=== PATIENT | male | born 1955 | race Caucasian/White ===

== ENCOUNTER 2024-09-27 15:49 | Inpatient (IN) | payer MEDICARE ==
[2024-09-27] MEDS ORDERED: NITROGLYCERIN SL TABS 0.4 MG TAB SUBLINGUAL PRN (15:51)
--- NOTE | 2024-09-27 15:57 | ED ---
General Adult HPI - General Stated complaint: Irreg Labs Time Seen by Provider: 09/27/24 15:50 Source: patient, EMS, RN notes reviewed, old records reviewed Mode of arrival: EMS Limitations: no limitations - History of Present Illness Initial comments: 69-year-old male with history of uncontrolled diabetes, hypertension, hyperlipidemia presents to the emergency department for lightheadedness and increased lethargy at home. Patient found to have elevated blood sugars by EMS. He is alert and oriented x 4. Only complaint is lightheadedness. No chest pain. No shortness of breath. Denies any history of CAD or cardiac stents. Presents for further evaluation at this time. - Related Data Home Medications Medication Instructions Recorded Confirmed Losartan [Cozaar] 50 mg PO DAILY 09/27/24 09/27/24 Allergies Allergy/AdvReac Type Severity Reaction Status Date / Time No Known Allergies Allergy Verified 09/27/24 16:48 Review of Systems ROS Statement: Those systems with pertinent positive or pertinent negative responses have been documented in the HPI. Review of Systems: CONST: Denies fever EYES: Denies blurry vision ENT: Denies nasal congestion C/V: Denies Chest pain RESP: Denies shortness of breath GI: Denies abdominal pain : Denies dysuria SKIN: Denies rash. MSK: Denies joint pain. NEURO: Endorses lightheadedness ROS Other: All systems not noted in ROS Statement are negative. Past Medical History Past Medical History: Diabetes Mellitus, Hypertension History of Any Multi-Drug Resistant Organisms: None Reported Past Surgical History: No Surgical Hx Reported Smoking Status: Never smoker Past Alcohol Use History: Unable to Obtain Past Drug Use History: Marijuana General Exam - General Exam Comments Initial Comments: General: Appears in no acute distress. HEAD: Normal with no signs of head trauma. EYES: PERRLA, EOMI, conjunctiva normal, no discharge. Pupils are 3 mm and equal bilaterally. ENT: Hearing grossly intact, normal oropharynx. Dry mucous membranes. RESPIRATORY: Clear breath sounds bilaterally. No wheezes, rales, or rhonchi. C/V: Regular rate and rhythm. S1 and S2 auscultated, no edema, peripheral pulses 2+ and intact throughout ABD: Abd is soft, nontender, nondistended EXT: Normal range of motion, no obvious deformity SKIN: No rashes or lesions observed on exposed skin. NEURO: Alert and orient x 4. No focal deficits. GCS of 15. Limitations: no limitations Course Vital Signs 09/27/24 09/27/24 15:51 16:06 Pulse Rate 66 55 L Respiratory 20 20 Rate Blood Pressure 140/117 123/79 O2 Sat by Pulse 96 99 Oximetry Medical Decision Making - Medical Decision Making Was pt. sent in by a medical professional or institution ([facility], MANAGER LINE, urgent care, hospital, or assisted...) When possible be specific @ -No Did you speak to anyone other than the patient for history (EMS, parent, family, police, friend...)? What history was obtained from this source @ -No Did you review nursing and triage notes (agree or disagree)? Why? @ -I reviewed and agree with nursing and triage notes Were old charts reviewed (outside hosp., previous admission, EMS record, old EKG, old radiological studies, urgent care reports/EKG's, assisted records)? Report findings @ -No old charts for comparison. Differential Diagnosis (chest pain, altered mental status, abdominal pain women, abdominal pain men, vaginal bleeding, weakness, fever, dyspnea, syncope, headache, dizziness, GI bleed, back pain, seizure, CVA, palpatations, mental health, musculoskeletal)? @ -STEMI, DKA, dehydration, electrolyte abnormality, uncontrolled diabetes. This list is not all inclusive. EKG interpreted by me (3pts min.). @ -As above X-rays interpreted by me (1pt min.). @ -Chest x-ray reveals no obvious acute cardiopulmonary process. CT interpreted by me (1pt min.). @ -None done U/S interpreted by me (1pt. min.). @ -None done What testing was considered but not performed or refused? (CT, X-rays, U/S, labs)? Why? @ -None What meds were considered but not given or refused? Why? @ -None Did you discuss the management of the patient with other professionals (professionals i.e. [facility], MANAGER LINE, lab, RT, psych nurse, medical social worker, lawyer probate, teacher, information systems security officer, continuous pillowcase cutter)? Give summary @ -Discussed with on-call cardiology, Dr. Hale who agreed with STEMI criteria and patient be taken to [facility]. I discussed the case with sound physician group on-call Dr. Washington who accepted the admission. Was smoking cessation discussed for >3mins.? @ -No Was critical care preformed (if so, how long)? @ -yes, 20 minutes Were there social determinants of health that impacted care today? How? (Homelessness, low income, unemployed, alcoholism, drug addiction, transportation, low edu. Level, literacy, decrease access to med. care, intermediate, rehab)? @ -No Was there de-escalation of care discussed even if they declined (Discuss DNR or withdrawal of care, Hospice)? DNR status @ -No What co-morbidities impacted this encounter? (DM, HTN, Smoking, COPD, CAD, Cancer, CVA, ARF, Chemo, Hep., AIDS, mental health diagnosis, sleep apnea, morbid obesity)? @ -None Was patient admitted / discharged? Hospital course, mention meds given and route, prescriptions, significant lab abnormalities, going to OR and other pertinent info. @ -Based on the patient's presentation and physical exam, presents emergency department complaining of lightheadedness and apparently some increased fatigue for the last 3 to 4 days at home. Patient is somewhat a poor historian, but was found to have elevated blood sugar in the field. Apparently used to be on insulin. He denies any chest pain but does endorse lightheadedness. EKG obtained and appears to show patient has a STEMI. STEMI pager activated. Patient administered 80 mg of Lipitor, he already saved 324 mg of aspirin by EMS. Patient will be given 4000 units of heparin. Patient's blood sugar is registering as high. We will obtain DKA labs in addition to cardiac labs. Patient will be given 2 L fluid bolus. Chest x-ray shows no obvious acute cardiopulmonary process. Discussed the case with Dr. Hale who was in agreement with STEMI activation. Discussed the case with the admitting provider, Dr. Washington who expressed understanding of STEMI and DKA and was in agreement with plan. He accepted the admission. Patient's laboratory studies returned after he was admitted. Troponin is 36. Blood sugar level is 961. Patient has an MIGUEL with a BUN of 75 and creatinine of 1.47. Acetone positive. Suspect DKA. This was conveyed to the admitting team when I admitted the patient. Undiagnosed new problem with uncertain prognosis? @ -No Drug Therapy requiring intensive monitoring for toxicity (Heparin, Nitro, Insulin, Cardizem)? @ -No Were any procedures done? @ -No Diagnosis/symptom? @ -STEMI, hyperglycemia/DKA Acute, or Chronic, or Acute on Chronic? @ -Acute Uncomplicated (without systemic symptoms) or Complicated (systemic symptoms)? @ -Complicated Side effects of treatment? @ -No Exacerbation, Progression, or Severe Exacerbation? @ -No Poses a threat to life or bodily function? How? (Chest pain, [place], [place], pneumonia, PE, COPD, DKA, ARF, appy, cholecystitis, CVA, Diverticulitis, Homicidal, Suicidal, threat to staff... and all critical care pts) @ -yes - Lab Data Result diagrams: 09/27/24 15:58 09/27/24 15:58 Lab Results 09/27/24 09/27/24 09/27/24 Range/Units 15:58 15:58 15:58 WBC 11.23 H (4.50-10.00) 10*3/uL RBC 6.21 H (4.40-5.60) 10*6/uL Hgb 18.5 H (13.0-17.0) g/dL Hct 55.3 H (39.6-50.0) % MCV 89.0 (80.0-97.0) fL MCH 29.8 (27.0-32.0) pg MCHC 33.5 (32.0-37.0) g/dL Plt Count 216 (140-440) 10*3/uL MPV 12.5 H (9.5-12.2) fL Immature Gran % (Auto) 0.4 % Neutrophils % 84.3 % Lymphocytes % 8.3 % Monocytes % 6.9 % Eosinophils % 0.0 % Basophils % 0.1 % Immature Gran # 0.05 H (0.00-0.04) 10*3/uL Neutrophils # 9.47 H (1.80-7.70) 10*3/uL Lymphocytes # 0.93 (0.90-5.00) 10*3/uL Monocytes # 0.77 (0.20-1.00) 10*3/uL Eosinophils # 0.00 L (0.04-0.35) 10*3/uL Basophils # 0.01 (0.00-0.10) 10*3/uL PT 11.2 (10.0-12.5) sec INR 1.0 (<1.2) APTT 19.2 L (22.0-30.0) sec VBG pH (7.31-7.41) VBG pCO2 (37-51) mmHg VBG HCO3 (24-28) mmol/L Sodium 146 H (137-145) mmol/L Potassium 5.4 H (3.5-5.1) mmol/L Chloride 105 (98-107) mmol/L Carbon Dioxide 22 (22-30) mmol/L Anion Gap 19 mmol/L BUN 75 H (9-20) mg/dL Creatinine 1.47 H (0.66-1.25) mg/dL Est GFR (CKD-EPI)AfAm 56 (>60 ml/min/1.73 sqM) Est GFR (CKD-EPI)NonAf 48 (>60 ml/min/1.73 sqM) Glucose 961 H* (74-99) mg/dL POC Glucose (mg/dL) (70-110) mg/dL POC Glu Cream Maker ID Calcium 9.1 (8.4-10.2) mg/dL Total Bilirubin 1.1 (0.2-1.3) mg/dL AST 57 (17-59) U/L ALT 143 H (4-49) U/L Alkaline Phosphatase 116 (38-126) U/L Troponin I (0.000-0.034) ng/mL Total Protein 7.4 (6.3-8.2) g/dL Albumin 4.2 (3.5-5.0) g/dL Acetone, Qual Positive (Negative) 09/27/24 09/27/24 09/27/24 Range/Units 15:58 15:58 15:58 WBC (4.50-10.00) 10*3/uL RBC (4.40-5.60) 10*6/uL Hgb (13.0-17.0) g/dL Hct (39.6-50.0) % MCV (80.0-97.0) fL MCH (27.0-32.0) pg MCHC (32.0-37.0) g/dL Plt Count (140-440) 10*3/uL MPV (9.5-12.2) fL Immature Gran % (Auto) % Neutrophils % % Lymphocytes % % Monocytes % % Eosinophils % % Basophils % % Immature Gran # (0.00-0.04) 10*3/uL Neutrophils # (1.80-7.70) 10*3/uL Lymphocytes # (0.90-5.00) 10*3/uL Monocytes # (0.20-1.00) 10*3/uL Eosinophils # (0.04-0.35) 10*3/uL Basophils # (0.00-0.10) 10*3/uL PT (10.0-12.5) sec INR (<1.2) APTT (22.0-30.0) sec VBG pH 7.30 L (7.31-7.41) VBG pCO2 47 (37-51) mmHg VBG HCO3 23 L (24-28) mmol/L Sodium (137-145) mmol/L Potassium (3.5-5.1) mmol/L Chloride (98-107) mmol/L Carbon Dioxide (22-30) mmol/L Anion Gap mmol/L BUN (9-20) mg/dL Creatinine (0.66-1.25) mg/dL Est GFR (CKD-EPI)AfAm (>60 ml/min/1.73 sqM) Est GFR (CKD-EPI)NonAf (>60 ml/min/1.73 sqM) Glucose (74-99) mg/dL POC Glucose (mg/dL) >600 H* (70-110) mg/dL POC Glu Cream Maker ID [facility] Calcium (8.4-10.2) mg/dL Total Bilirubin (0.2-1.3) mg/dL AST (17-59) U/L ALT (4-49) U/L Alkaline Phosphatase (38-126) U/L Troponin I 36.600 H* (0.000-0.034) ng/mL Total Protein (6.3-8.2) g/dL Albumin (3.5-5.0) g/dL Acetone, Qual (Negative) - EKG Data -: EKG Interpreted by Me EKG Comments: 12-lead Electrocardiogram Interpretation Note EKG was reviewed and interpreted by myself. 12-lead ECG performed at 1547 is i nterpreted by me as revealing sinus bradycardia with first-degree AV block at a rate of 56 beats per minute. [employer] is normal. LA interval is 315 ms, QRS duration is 180 ms, QTc is [address] segment elevation in his present in leads II, III, aVF. Some reciprocal ST segment depression in aVL. Mild ST segment elevation also in V3.. R wave progression across the precordium was satisfactory. By my interpretation this EKG is non-diagnostic for acute ischemia. Critical Care Time Critical Care Time: Yes Total Critical Care Time: 20 Disposition Clinical Impression: STEMI (ST elevation myocardial infarction), Hyperglycemia, DKA (diabetic ketoacidosis) Disposition: ADMITTED IP TO THIS HOSP Condition: Serious Time of Disposition: 16:15
[2024-09-27 15:59] LABS: Glucose,Whole Blood >600 mg/dL (70-110)
[2024-09-27] MEDS: HEPARIN SODIUM 1,000 UN/ML (10ML VL) IV ONE ×2 (15:59→16:57)
[2024-09-27] MEDS: SODIUM CHLORIDE 0.9% 1,000 ML IV STA (16:00)
[2024-09-27] MEDS: ATORVASTATIN 80 MG TAB PO STA (16:01)
[2024-09-27] MEDS: SODIUM CHLORIDE 0.9% 1,000 ML IV ONE (16:01)
[2024-09-27] MEDS ORDERED: NALOXONE 0.4 MG/ML 1 ML VIAL IV PRN (16:12)
[2024-09-27 16:14] LABS: VBG PH 7.3 (7.31-7.41)
--- NOTE | 2024-09-27 16:21 | XR ---
EXAMINATION TYPE: XR chest 1V portable DATE OF EXAM: 09/27/2024 4:07 PM COMPARISON: None CLINICAL INDICATION: Male, 69 years old with history of chest pain; [facility] TECHNIQUE: XR chest 1V portable Frontal view of the chest. FINDINGS: Lungs/Pleura: There is no evidence of pleural effusion, focal consolidation, or pneumothorax. Pulmonary vascularity: Unremarkable. Heart/mediastinum: Cardiomediastinal silhouette is unremarkable. Musculoskeletal: No acute osseous pathology. IMPRESSION: No acute cardiopulmonary disease/process. [facility], , 09/27/2024 4:19 PM
[2024-09-27 16:23] LABS: ALT 143 U/L (4-49); African American GFR (CKD) 56 (>60 ml/min/1.73 sqM); Albumin 4.2 g/dL (3.5-5.0); Anion Gap 19 mmol/L; Blood Urea Nitrogen 75 mg/dL (9-20); Calcium 9.1 mg/dL (8.4-10.2); Carbon Dioxide 22 mmol/L (22-30); Chloride 105 mmol/L (98-107); Non-African American GFR(CKD) 48 (>60 ml/min/1.73 sqM); Sodium 146 mmol/L (137-145); Total Bilirubin 1.1 mg/dL (0.2-1.3); Total Protein 7.4 g/dL (6.3-8.2)
[2024-09-27] MEDS: IV FLUID CONTINUATION 1,000 ML IV ONE (16:25)
[2024-09-27 16:34] LABS: AST 57 U/L (17-59); Alkaline Phosphatase 116 U/L (38-126); Potassium 5.4 mmol/L (3.5-5.1)
[2024-09-27 16:35] LABS: Glucose 961 mg/dL (74-99)
[2024-09-27] MEDS: LIDOCAINE 1% INJ 10MG/ML (20 ML MDV) SQ ONE (16:37)
[2024-09-27] MEDS: VERAPAMIL SYRINGE (5 MG/10 ML) INTRAARTER ONE (16:41)
[2024-09-27] MEDS ORDERED: DEXTROSE 50% SYRINGE 50 ML IVP PRN (16:42)
[2024-09-27] MEDS ORDERED: INSULIN REGULAR 100 UNIT in SODIUM CHLORIDE 0.9% 100 ML IV SCH (16:45)
[2024-09-27] MEDS: MIDAZOLAM 2 MG/2 ML VIAL IVP ONE (16:47)
[2024-09-27 16:50] LABS: Prothrombin Time 11.2 sec (10.0-12.5)
[2024-09-27 16:52] LABS: Basophils # (A) 0.01 10*3/uL (0.00-0.10); Basophils % (A) 0.1 %; HGB 18.5 g/dL (13.0-17.0); Lymphocytes # (A) 0.93 10*3/uL (0.90-5.00); Lymphocytes % (A) 8.3 %; MCH 29.8 pg (27.0-32.0); MCHC 33.5 g/dL (32.0-37.0); Mean Platelet Volume 12.5 fL (9.5-12.2); Monocytes # (A) 0.77 10*3/uL (0.20-1.00); Monocytes % (A) 6.9 %; Neutrophils # (A) 9.47 10*3/uL (1.80-7.70); Neutrophils % (A) 84.3 %; Partial Thromboplastin Time 19.2 sec (22.0-30.0); Platelet Count 216 10*3/uL (140-440); RBC 6.21 10*6/uL (4.40-5.60); RDW 13.2 % (11.5-14.5); WBC 11.23 10*3/uL (4.50-10.00)
[2024-09-27 16:55] LABS: HCT 55.3 % (39.6-50.0)
[2024-09-27] MEDS: TICAGRELOR 90 MG TAB PO ONE (16:57)
[2024-09-27] MEDS: fentaNYL (PF) 50 MCG/1 ML VIAL IVP ONE (16:59)
[2024-09-27] MEDS: INSULIN REGULAR 100 UNIT/ML VIAL (IV) IV ONE (17:09)
[2024-09-27] MEDS ORDERED: KETAMINE HCL IN 0.9 % NACL 50 MG/5 ML SYRINGE ONE (17:16)
[2024-09-27] MEDS: INSULIN REGULAR 100 UNIT in SODIUM CHLORIDE 0.9% 100 ML IV SCH ×2 (17:20→21:27)
[2024-09-27] MEDS: NOREPINEPHRINE 8 MG in SODIUM CHLORIDE 0.9% 250 ML IV ONE (17:44)
[2024-09-27 17:48] LABS: Glucose,Whole Blood >600 mg/dL (70-110)
[2024-09-27] MEDS: IOPAMIDOL-300 100ML BTL INJ ONE (18:01)
[2024-09-27] MEDS: IOPAMIDOL-370 100ML BTL INJ ONE ×2 (18:01)
[2024-09-27] MEDS: HEPARIN SODIUM,PORCINE 10,000 UNIT in SODIUM CHLORIDE 0.9% 1,000 ML IRRIGATION ONE (18:03)
[2024-09-27] MEDS: HEPARIN SODIUM,PORCINE (1 ML) 2,500 UNIT in SODIUM CHLORIDE 0.9% 250 ML IRRIGATION ONE (18:03)
[2024-09-27 18:29] LABS: Glucose,Whole Blood >600 mg/dL (70-110)
[2024-09-27] MEDS: NOREPINEPHRINE 8 MG in SODIUM CHLORIDE 0.9% 250 ML IV SCH (18:47)
[2024-09-27] MEDS: EMPTY BAG 1 BAG with SODIUM CHLORIDE 0.9% 1,000 ML IV ONE (19:15)
[2024-09-27 19:16] LABS: Glucose,Whole Blood 585 mg/dL (70-110)
[2024-09-27 20:05] LABS: INR 1.1 (<1.2); Partial Thromboplastin Time 74.6 sec (22.0-30.0); Prothrombin Time 11.8 sec (10.0-12.5)
[2024-09-27 20:05] LABS: Glucose,Whole Blood 546 mg/dL (70-110)
[2024-09-27] MEDS ORDERED: Magnesium Replacement Protocol 1 EACH MISC MISCELLANE PRN (20:50)
[2024-09-27] MEDS ORDERED: Potassium Replacement Protocol 1 EACH MISC MISCELLANE PRN (20:50)
[2024-09-27 21:18] LABS: Glucose,Whole Blood 495 mg/dL (70-110)
[2024-09-27] MEDS: SODIUM CHLORIDE 0.9% 1,000 ML IV SCH (21:21)
[2024-09-27 22:09] LABS: Glucose,Whole Blood 436 mg/dL (70-110)
[2024-09-27 23:09] LABS: Glucose,Whole Blood 357 mg/dL (70-110)
[2024-09-27] MEDS ORDERED: ATROPINE SULFATE 0.1 MG/ML 10ML SYRINGE IV PRN (23:17)
[2024-09-27] MEDS ORDERED: RX INFO: IV CONTRAST WAS GIVEN 1 EACH MISC MISCELLANE PRN (23:17)
[2024-09-27] MEDS ORDERED: ZOLPIDEM 5 MG TAB PO PRN (23:17)
[2024-09-27] MEDS ORDERED: MAG HYDROX/AL HYDROX/SIMETH 30 ML CUP PO PRN (23:17)
--- NOTE | 2024-09-27 23:48 | P.PRCINT ---
Percutaneous Coronary Int. - Percutaneous Coronary Intervention Percutaneous Coronary Intervention: PROCEDURES PERFORMED: Bilateral coronary angiography, PCI proximal to mid LAD with overlapping 2.5 x 23mm XIence FINA and 3.0 x 48mm Xience FINA, post dilated with a 3.5mm NC balloon, IVUS LAD INDICATION: Inferior STEMI CONSENT:I have discussed the risks, benefits and alternative therapies for the above-mentioned procedure and for both sedation/analgesia as well as necessary blood product administration, if indicated, as they pertain to this patient. The patient has indicated understanding and acceptance of the risks and procedures discussed. PROCEDURE: After the risks, benefits and alternatives of the above mentioned procedure explained in detail with the patient, informed consent was obtained. Patient was taken to the catheterization lab and prepped and draped in usual fashion. A 6-Andorran sheath had been placed in the right radial artery previously. Patient had ST elevations in inferior leads as well as V3 with unclear culprit vessel with somewhat of dye hangup in RCA however also well collateralized RCA and hazy appearance of LAD. Initial attempts were made at engaging the RCA with a 6FR AL 1 however unsuccessful and eventually able to cannulate with an AL 0.75 guide and wire to the acute bend of the RCA. With the help of a guideliner, able to wire somewhat more of the vessel however not passing freely. Able to advance a 2.5 x 8mm balloon and balloon angioplasty was performed however not significant change in antegrade perfusion, unclear if truly intimal in the natural course or in a side branch and also behaving more like a LOOPER OPERATOR. Patient had been confused since arrival and not answering questions appropriately and not following commands. Anesthesia was called and gave patient Ketamine with some mild improvement in agitation intially. Given RCA behaving like A LOOPER OPERATOR with some left to right collaterals, the decision was made to perform PCI of the LAD and monitor response. A 6FR CLS 4.0 guide catheter was used to engage the left main. A 0.014 BMW wire was not easily adva nced and a 0.014 whisper wire was used to advance into the distal LAD. Balloon angioplasty was performed with a 2.5 x 8mm balloon to the mid LAD. There was diffuse disease as well as severe myocardial bridging of the proximal to mid LAD. At this point patient was restless and pulled his arm, pulling the catheter and the wire out of the left main. The artery was reengaged and rewired. Angiogram showed diffuse disease however more proximal dissection. A 2.5 x 23mm Xience FINA was placed in the mid LAD. A 3.0 x 48mm Xience FINA was placed in the proximal to mid LAD. Angiogram showed poor antegrade flow and therefore post dilated with a 3.0mm NC balloon. There was still poor antegrade flow and IVUS showed well expanded stent with no dissection. This was felt possibly related to myocardial bridging of the mid LAD. The mid and proximal portion of the stent was post dilated with a 3.5mm NC balloon. Final angiograms were performed. Preintervention there was 95% stenosis with AMY 2 flow and post intervention there was < 10% stenosis with AMY 3 flow. Angiogram of the RCA was performed with a 6Fr CLS 4.0 catheter which engaged the artery well. A 0.014 pilot plant technician 200 was able to advance to just past the bend however unable to easily pass further. Patient still not following commands and pulled the wire out again. Patient was hypotensive felt possibly related to sedation as well as cardiogenic shock, possible septic shock however improved with pressors and patient felt poor candidate for Impella given altered mental status. His BP had normalized on pressors and therefore the procedure was stopped. The right radial sheath was removed and a TR band was placed with hemostasis achieved. The patient tolerated the procedure well. Patient was transported back to the post catheterization holding area in stable condition. Conscious Sedation: Patient was monitored under the direct supervision of myself for conscious sedation using Versed and fentanyl for a total duration of 68 minutes HEMODYNAMICS: Ao: 124/71 (further decreased to 78/60) SELECTIVE CORONARY ARTERIOGRAPHY: LEFT MAIN: The left main is a large caliber vessel which bifurcates into the LAD and circumflex. There is no significant stenosis. LEFT ANTERIOR DESCENDING CORONARY ARTERY: LAD is a large caliber vessel which wraps around to the apex. There is diffuse proximal 20-30% then 40% proximal to mid LAD with excessive motion and myocardial bridging. The mid LAD has a hazy 95% stenosis and diffuse 40-50% stenosis of the remained of the distal LAD. There are left to right collaterals. LEFT CIRCUMFLEX CORONARY ARTERY: Left circumflex is a moderate caliber vessel with diffuse 40-50%. RIGHT CORONARY ARTERY: The right coronary artery is a large caliber vessel which gives off a PDA and PLV branch and is the dominant vessel. There is 100% stenosis. FINAL IMPRESSION: 1. CAD as described above including 95% mid LAD, 40-50% distal LAD, 40-50% circumflex, 100% RCA with left to right collaterals 2. S/p PCI proximal to mid LAD with overlapping 2.5 x 23mm XIence FINA and 3.0 x 48mm Xience FINA, post dilated with a 3.5mm NC balloon 3. Shock, improved with vasopressors likely cardiogenic +/- sepsis 4. Patient uncooperative throughout procedure 5. RCA behaving more like a chronic occlusion and felt to be LOOPER OPERATOR PLAN: 1. Aggressive risk factor modification per most recent ACC/AHA guidelines. 2. Continue dual antiaplatelets with aspirin and Brillinta for 12 months
[2024-09-27] MEDS: SODIUM CHLORIDE 0.9% 1,000 ML in EMPTY BAG 1 BAG IV SCH (23:54)
--- NOTE | 2024-09-28 00:06 | CC ---
CARDIAC CATHETERIZATION REPORT INDICATION: Acute inferior wall myocardial infarction. PROCEDURE NOTE: After obtaining informed consent, left heart catheterization and coronary angiogram were performed via the right radial artery using standard Becca catheters. An AR2 5- Setswana catheter was used to engage the right coronary artery. Right radial artery access was obtained using ultrasound guidance by Dr. Iverson. A 6-Setswana sheath was placed. Catheters and wires were floated into the ascending aorta under fluoroscopic guidance. FINDINGS: 1. Hemodynamics: Central aortic pressure is 120/70 mm. 2. Left ventriculogram: Left ventriculogram is not performed. 3. Angiographic data under this left main coronary artery appears calcified, but is free of significant stenosis, divides into left anterior descending coronary artery and circumflex coronary artery. There is a 90% mid LAD stenosis and an 80% stenosis involving the circumflex coronary artery. 4. Right coronary artery is totally occluded proximally. CONCLUSION: Severe three-vessel coronary artery disease as described above with an acutely occluded right coronary artery, which is responsible for the myocardial infarction. The patient has blood sugar more than 900. He is a known diabetic, has not been taking insulin. It is possible he is in diabetic ketoacidosis, appeared somewhat slow to respond to questions and somewhat confused. MMODL / IJN: [id number] /
[2024-09-28 00:09] LABS: Glucose,Whole Blood 309 mg/dL (70-110)
--- NOTE | 2024-09-28 00:09 | CONS ---
CONSULTATION CHIEF COMPLAINT: Acute myocardial infarction. HISTORY OF PRESENT ILLNESS: This is a 69-year-old gentleman with history of insulin-requiring diabetes, that he stopped taking insulin 2 years ago, came to hospital complaining of dizziness and not feeling well, seems somewhat slow to respond to questions, had an EKG that showed acute inferior wall myocardial infarction. STEMI team was alerted and we were called as a result. I saw the patient in the phlebotomist lab assistant. He complains of dizziness and not feeling well for the last several days, but did not have any chest pain or difficulty in breathing. EKG showed acute inferior wall myocardial infarction, and I advised him to undergo emergent cardiac catheterization. Other than the elevated blood sugars, we did not have any of his labs. He has not received any insulin in the ER. We are going to give him 10 units of insulin and maybe start him on insulin drip per protocol. It is very possible that the patient is in diabetic ketoacidosis. We are waiting on labs at this time. PAST MEDICAL HISTORY: Significant for diabetes. MEDICATIONS: He is not taking any. ALLERGIES: None. FAMILY HISTORY: Negative for premature coronary artery disease. SOCIAL HISTORY: He denies any smoking, EtOH abuse or drug abuse. REVIEW OF SYSTEMS: I am not able to obtain from the patient. PHYSICAL EXAMINATION: GENERAL: On exam, he is not in distress. VITAL SIGNS: Heart rate is 65 beats per minute, blood pressure is 110/72, and respiratory rate is 18. CHEST: Reveals good air entry bilaterally. I do not hear any crackles or rhonchi. HEART: Reveals first and second heart sounds. No gallop. No murmur. ABDOMEN: Soft. EXTREMITIES: Exam of extremities did not reveal any edema. LABORATORY DATA: Labs are pending. ASSESSMENT: 1. Acute inferior wall myocardial infarction. 2. Severe uncontrolled diabetes with blood sugars over 600 with possible diabetic ketoacidosis. PLAN: The patient's prognosis is guarded. He will undergo emergent catheterization. MMODL / IJN: [id number] /
[2024-09-28 00:59] LABS: African American GFR (CKD) 80 (>60 ml/min/1.73 sqM); Anion Gap 15 mmol/L; Blood Urea Nitrogen 59 mg/dL (9-20); Carbon Dioxide 22 mmol/L (22-30); Chloride 121 mmol/L (98-107); Glucose 316 mg/dL (74-99); Non-African American GFR(CKD) 69 (>60 ml/min/1.73 sqM); Sodium 158 mmol/L (137-145)
[2024-09-28 01:18] LABS: Glucose,Whole Blood 172 mg/dL (70-110)
[2024-09-28 02:08] LABS: Glucose,Whole Blood 126 mg/dL (70-110)
[2024-09-28] MEDS: D5-0.45% NACL WITH KCL 20MEQ/L 1,000 ML IV SCH (02:27)
[2024-09-28 03:03] LABS: Glucose,Whole Blood 124 mg/dL (70-110)
--- NOTE | 2024-09-28 03:18 | P.HPIM ---
History of Present Illness H&P Date: 09/27/24 69-year-old male with uncontrolled diabetes mellitus coronary artery disease hypertension Patient seems to be tired at this time unable to provide any meaningful history he confirm with his daughter is providing at bedside. She has not spoken to him in couple days he was not answering his phone she goes to his house to check on him and she found him lethargic and unable to take care of himself for which he brought him to the hospital for evaluation upon arrival initial blood work showed diabetic ketoacidosis however EKG showed ST elevation [place] for which she was rushed to the [facility] for evaluation patient did not really specifically reporting chest pain he was hurting all over. At the [facility] left heart cath was performed 95% occlusion of the LAD was stented with successful PCI. Patient also found to have other moderate vessel disease and 100% occlusion of RCA with collaterals Patient denies tobacco smoking or heavy alcohol he admits to marijuana review of systems Pertinent positives as noted in HPI. All other systems were reviewed and are negative on exam Constitutional: No acute distress, cooperative Eyes: Anicteric sclerae, moist conjunctiva, Pupils equal round reactive to light Lungs: Clear to auscultation Clear to percussion Normal respiratory effort, no accessory muscle use Cardiovascular: Heart regular in rate and rhythm, No murmurs, gallops, or rubs No peripheral edema Abdominal: Soft Nontender, no guarding, rebound or rigidity Abdomen moving with respiration Normoactive bowel sounds Extremities: No digital cyanosis No clubbing Pedal pulses intact and symmetrical Radial pulses intact and symmetrical No calf tenderness Psychiatric: Alert and oriented to person, place and time Neuro Muscles Strength 4/5 in all 4 extremities Sensation to light touch grossly present throughout Cranial nerves II-XII grossly intact Past Medical History Past Medical History: Diabetes Mellitus, Hypertension History of Any Multi-Drug Resistant Organisms: None Reported Past Surgical History: No Surgical Hx Reported Smoking Status: Never smoker Past Alcohol Use History: Unable to Obtain Past Drug Use History: Marijuana - Past Family History Brother(s) Family Medical History: Diabetes Mellitus, Myocardial Infarction ([place]) Additional Family Medical History / Comment(s): Brother Cooper - [place] w/ stents Brother Fredi - [place], HTN Mother Family Medical History: Diabetes Mellitus, Myocardial Infarction ([place]) Medications and Allergies Home Medications Medication Instructions Recorded Confirmed Type Losartan [Cozaar] 50 mg PO DAILY 09/27/24 09/27/24 History Allergies Allergy/AdvReac Type Severity Reaction Status Date / Time No Known Allergies Allergy Verified 09/27/24 16:48 Physical Exam Vitals: Vital Signs Pulse Resp BP Pulse Ox 09/27/24 19:00 51 L 24 115/77 100 09/27/24 18:45 50 L 22 100/73 100 09/27/24 18:30 51 L 18 09/27/24 18:27 54 L 18 120/81 96 09/27/24 16:06 55 L 20 123/79 99 09/27/24 15:51 66 20 140/117 96 Intake and Output 09/27/24 09/27/24 09/27/24 06:59 14:59 22:59 Intake Total 981.350 Balance 981.350 Intake: IV 974 Empty Bag 1 bag @ 1 ML/KG 73 /HR 72.575 mls/hr IV . [id number] ONE with Sodium Chloride 0.9% 1,000 ml Rx #:[id number] Intake, IV Titration 7.350 Amount Norepinephrine 8 mg In 7.350 Sodium Chloride 0.9% 250 ml @ 0.03 MCG/KG/MIN 4. 213 mls/hr IV .Q24H [facility] Rx#:[id number] Other: Voiding Method External Catheter Weight 72.575 kg Results CBC & Chem 7: 09/27/24 15:58 09/28/24 00:06 Labs: Abnormal Lab Results - Last 24 Hours (Table) 09/27/24 09/27/24 09/27/24 Range/Units 15:58 15:58 15:58 WBC 11.23 H (4.50-10.00) 10*3/uL RBC 6.21 H (4.40-5.60) 10*6/uL Hgb 18.5 H (13.0-17.0) g/dL Hct 55.3 H (39.6-50.0) % MPV 12.5 H (9.5-12.2) fL Immature Gran # 0.05 H (0.00-0.04) 10*3/uL Neutrophils # 9.47 H (1.80-7.70) 10*3/uL Eosinophils # 0.00 L (0.04-0.35) 10*3/uL APTT 19.2 L (22.0-30.0) sec VBG pH (7.31-7.41) VBG HCO3 (24-28) mmol/L Sodium 146 H (137-145) mmol/L Potassium 5.4 H (3.5-5.1) mmol/L BUN 75 H (9-20) mg/dL Creatinine 1.47 H (0.66-1.25) mg/dL Glucose 961 H* (74-99) mg/dL POC Glucose (mg/dL) (70-110) mg/dL ALT 143 H (4-49) U/L Troponin I (0.000-0.034) ng/mL 09/27/24 09/27/24 09/27/24 Range/Units 15:58 15:58 15:58 WBC (4.50-10.00) 10*3/uL RBC (4.40-5.60) 10*6/uL Hgb (13.0-17.0) g/dL Hct (39.6-50.0) % MPV (9.5-12.2) fL Immature Gran # (0.00-0.04) 10*3/uL Neutrophils # (1.80-7.70) 10*3/uL Eosinophils # (0.04-0.35) 10*3/uL APTT (22.0-30.0) sec VBG pH 7.30 L (7.31-7.41) VBG HCO3 23 L (24-28) mmol/L Sodium (137-145) mmol/L Potassium (3.5-5.1) mmol/L BUN (9-20) mg/dL Creatinine (0.66-1.25) mg/dL Glucose (74-99) mg/dL POC Glucose (mg/dL) >600 H* (70-110) mg/dL ALT (4-49) U/L Troponin I 36.600 H* (0.000-0.034) ng/mL 09/27/24 09/27/24 09/27/24 Range/Units 17:46 18:28 19:14 WBC (4.50-10.00) 10*3/uL RBC (4.40-5.60) 10*6/uL Hgb (13.0-17.0) g/dL Hct (39.6-50.0) % MPV (9.5-12.2) fL Immature Gran # (0.00-0.04) 10*3/uL Neutrophils # (1.80-7.70) 10*3/uL Eosinophils # (0.04-0.35) 10*3/uL APTT (22.0-30.0) sec VBG pH (7.31-7.41) VBG HCO3 (24-28) mmol/L Sodium (137-145) mmol/L Potassium (3.5-5.1) mmol/L BUN (9-20) mg/dL Creatinine (0.66-1.25) mg/dL Glucose (74-99) mg/dL POC Glucose (mg/dL) >600 H* >600 H* 585 H* (70-110) mg/dL ALT (4-49) U/L Troponin I (0.000-0.034) ng/mL 09/27/24 09/27/24 Range/Units 19:29 20:04 WBC (4.50-10.00) 10*3/uL RBC (4.40-5.60) 10*6/uL Hgb (13.0-17.0) g/dL Hct (39.6-50.0) % MPV (9.5-12.2) fL Immature Gran # (0.00-0.04) 10*3/uL Neutrophils # (1.80-7.70) 10*3/uL Eosinophils # (0.04-0.35) 10*3/uL APTT 74.6 H (22.0-30.0) sec VBG pH (7.31-7.41) VBG HCO3 (24-28) mmol/L Sodium (137-145) mmol/L Potassium (3.5-5.1) mmol/L BUN (9-20) mg/dL Creatinine (0.66-1.25) mg/dL Glucose (74-99) mg/dL POC Glucose (mg/dL) 546 H* (70-110) mg/dL ALT (4-49) U/L Troponin I (0.000-0.034) ng/mL Assessment and Plan Assessment: 69-year-old male with diabetes mellitus coronary artery disease presented to the hospital lethargic found to be in DKA discussed case with ED doctor and accepted the admission for DKA and STEMI status post PCI stenting Diabetic ketoacidosis Patient initiated on DKA protocol Bolus of insulin IV then insulin drip IV fluid hydration normal saline 200 cc/h transition to D5.451 blood sugar is below 300 Anion gap is wide bicarb is 22 continue insulin drip until anion gap is closed Potassium replacement protocol Keep n.p.o. Monitor electrolytes every 2 hours Blood work showed glucose above 900, anion gap 19, bicarb 22 Sodium [address] elevation [place] Status post PCI stenting of a 95% occluded LAD. Continue Brilinta and aspirin Continue with statin Cardiology following Troponins 36 Patient required some inotrope immediately post catheterization Continued ICU care MIGUEL BUN 75 creatinine 1.47 Avoid nephrotoxic meds Continue with aggressive IV fluid hydration Monitor urine output Full code DVT prophylaxis on Lovenox 40 mg subcu daily
[2024-09-28 04:07] LABS: Basophils # (A) 0.01 10*3/uL (0.00-0.10); Basophils % (A) 0.1 %; Eosinophils # (A) 0.02 10*3/uL (0.04-0.35); Eosinophils % (A) 0.2 %; HGB 15.7 g/dL (13.0-17.0); Lymphocytes # (A) 1.34 10*3/uL (0.90-5.00); Lymphocytes % (A) 11.2 %; MCH 29.5 pg (27.0-32.0); MCHC 32.7 g/dL (32.0-37.0); MCV 90.2 fL (80.0-97.0); Mean Platelet Volume 11.2 fL (9.5-12.2); Monocytes # (A) 1.11 10*3/uL (0.20-1.00); Monocytes % (A) 9.3 %; Neutrophils # (A) 9.45 10*3/uL (1.80-7.70); Neutrophils % (A) 78.9 %; Platelet Count 202 10*3/uL (140-440); RBC 5.32 10*6/uL (4.40-5.60); RDW 13.2 % (11.5-14.5); WBC 11.96 10*3/uL (4.50-10.00)
[2024-09-28 04:14] LABS: Glucose,Whole Blood 135 mg/dL (70-110)
[2024-09-28 04:19] LABS: AST 47 U/L (17-59); African American GFR (CKD) 76 (>60 ml/min/1.73 sqM); Albumin 3.3 g/dL (3.5-5.0); Alkaline Phosphatase 73 U/L (38-126); Anion Gap 7 mmol/L; Blood Urea Nitrogen 56 mg/dL (9-20); Calcium 8.2 mg/dL (8.4-10.2); Carbon Dioxide 27 mmol/L (22-30); Chloride 126 mmol/L (98-107); Glucose 119 mg/dL (74-99); Non-African American GFR(CKD) 66 (>60 ml/min/1.73 sqM); Potassium 3.8 mmol/L (3.5-5.1); Sodium 160 mmol/L (137-145); Total Bilirubin 0.8 mg/dL (0.2-1.3); Total Protein 5.9 g/dL (6.3-8.2)
[2024-09-28 04:26] LABS: ALT 94 U/L (4-49)
[2024-09-28 05:24] LABS: Glucose,Whole Blood 186 mg/dL (70-110)
[2024-09-28] MEDS ORDERED: DEXTROSE 50% SYRINGE 50 ML IVP PRN ×2 (05:38)
[2024-09-28] MEDS: DEXTROSE 5% IN WATER 1,000 ML IV SCH (05:57)
[2024-09-28] MEDS: INSULIN GLARGINE (LANTUS) 100 UNIT/ML SYR SQ ONE (06:05)
[2024-09-28 06:32] LABS: Glucose,Whole Blood 223 mg/dL (70-110)
[2024-09-28 07:38] LABS: Glucose,Whole Blood 258 mg/dL (70-110)
--- NOTE | 2024-09-28 09:26 | P.NPCON ---
History of Present Illness - Reason for Consult acute renal failure, hypernatremia - History of Present Illness Reason for consultation: Acute kidney injury and hypernatremia History of present illness: Patient is a 69-year-old male seen in renal consultation for acute kidney injury and hyponatremia. Patient was found down by the EMS. He was noted to be in DKA on admission for blood glucose at 960. He received IV fluids and insulin drip. Patient was switched over from half-normal saline to D5W this morning due to hypernatremia. Most recent sodium level from this morning was 162. Additionally he was also noted to have elevated troponins. He was diagnosed with inferior wall STEMI and underwent cardiac catheterization September 27, 2024 with a stent placement to the LAD. He is currently resting in bed. Patient is quite lethargic. He is not a reliable historian. Renal function has been impr oving. Creatinine was 1.47 on admission and is 1.14 today. Unknown baseline renal function. Blood pressure has been running low. Levophed was resumed this morning. Vital signs are stable. Blood pressure low. General: No acute distress. HEENT: Head exam is unremarkable. LUNGS: No audible rhonchi or wheezes. No acute distress. HEART: Rate and Rhythm are regular. ABDOMEN: Abdominal exam soft, nontender. EXTREMITITES: No edema. Past Medical History Past Medical History: Diabetes Mellitus, Hypertension Last Myocardial Infarction Date:: 09/27/2024 History of Any Multi-Drug Resistant Organisms: None Reported Past Surgical History: No Surgical Hx Reported Past Anesthesia/Blood Transfusion Reactions: No Reported Reaction Date of Last Stent Placement:: 09/27/2024 Smoking Status: Never smoker Past Alcohol Use History: Unable to Obtain Past Drug Use History: Marijuana - Past Family History Brother(s) Family Medical History: Diabetes Mellitus, Myocardial Infarction ([place]) Additional Family Medical History / Comment(s): Brother Cooper - [place] w/ stents Brother Fredi - [place], HTN Mother Family Medical History: Diabetes Mellitus, Myocardial Infarction ([place]) Medications and Allergies Home Medications Medication Instructions Recorded Confirmed Type Losartan [Cozaar] 50 mg PO DAILY 09/27/24 09/27/24 History Allergies Allergy/AdvReac Type Severity Reaction Status Date / Time No Known Allergies Allergy Verified 09/27/24 16:48 Physical Exam Vitals: Vital Signs Temp Pulse Resp BP Pulse Ox 09/28/24 07:00 50 L 18 82/60 87 L 09/28/24 06:00 51 L 29 H 73/60 09/28/24 05:00 53 L 32 H 123/58 91 L 09/28/24 04:00 98.2 F 62 25 H 93/67 98 09/28/24 03:00 55 L 29 H 110/67 97 09/28/24 02:00 54 L 27 H 131/111 98 09/28/24 01:00 63 28 H 120/44 95 09/28/24 00:16 53 L 28 H 101/80 94 L 09/28/24 00:15 53 L 28 H 101/80 94 L 09/28/24 00:00 97.9 F 54 L 28 H 97/71 98 09/27/24 23:45 54 L 28 H 97/65 100 09/27/24 23:30 53 L 28 H 106/68 96 09/27/24 23:15 54 L 28 H 112/81 09/27/24 23:00 56 L 28 H 110/78 97 09/27/24 22:45 53 L 27 H 98/82 100 09/27/24 22:30 54 L 29 H 94/75 98 09/27/24 22:15 54 L 26 H 97/70 98 09/27/24 22:00 53 L 28 H 115/69 99 09/27/24 21:45 53 L 27 H 111/71 97 09/27/24 21:30 63 27 H 113/83 99 09/27/24 21:15 53 L 28 H 95/72 99 09/27/24 21:00 52 L 27 H 107/42 99 09/27/24 20:45 53 L 26 H 107/71 100 09/27/24 20:30 52 L 29 H 99/68 99 09/27/24 20:15 52 L 27 H 102/69 09/27/24 20:00 97.5 F L 51 L 29 H 93/66 99 09/27/24 19:00 51 L 24 115/77 100 09/27/24 18:45 50 L 22 100/73 100 09/27/24 18:30 51 L 18 09/27/24 18:27 54 L 18 120/81 96 09/27/24 16:06 55 L 20 123/79 99 09/27/24 15:51 66 20 140/117 96 Intake and Output 09/27/24 09/28/24 09/28/24 22:59 06:59 14:59 Intake Total 1136.782 3082.621 100 Output Total 0 800 Balance 1601.309 613.621 100 Intake: IV 1593 1373 100 D5-0.45% NaCl with KCl 600 20Meq/l 1,000 ml @ 150 mls/hr IV .[id number] [facility] Rx# :[id number] Dextrose 5% in Water 1, 100 100 000 ml @ 100 mls/hr IV . Q10H [facility] Rx#:[id number] Empty Bag 1 bag @ 1 ML/KG 292 73 /HR 72.575 mls/hr IV . [id number] ONE with Sodium Chloride 0.9% 1,000 ml Rx #:[id number] Sodium Chloride 0.9% 1, 400 600 000 ml @ 200 mls/hr IV . Q5H [facility] Rx#:[id number] Intake, IV Titration 8.309 40.621 Amount Insulin Regular 100 unit 40.621 In Sodium Chloride 0.9% 100 ml @ 0.1 UNITS/KG/HR 7.33 mls/hr IV .[id number] [facility] Rx#:[id number] Norepinephrine 8 mg In 8.309 Sodium Chloride 0.9% 250 ml @ 0.03 MCG/KG/MIN 4. 213 mls/hr IV .Q24H [facility] Rx#:[id number] Output: Urine 0 800 Other: Voiding Method External Catheter External Catheter Weight 72.575 kg 77.6 kg Results - Lab Results Most recent lab results Calcium 8.2 mg/dL (8.4-10.2) L 09/28/24 03:54 Phosphorus 3.4 mg/dL (2.5-4.5) 09/28/24 03:54 09/28/24 03:54 09/28/24 08:18 Assessment and Plan Plan: Assessment: 1. Acute kidney injury secondary to ATN secondary to DKA. Creatinine 1.47 on admission is 1.14 today. Unknown baseline renal function. Also received IV contrast September 27, 2024. 2. Acute STEMI status postcardiac catheterization September 27, 2024 with stent placement to the LAD. 3. DKA status post insulin drip. 4. Hypernatremia from lack of oral water intake. 5. Shock maintained on Levophed. Plan: Increase rate of D5W to 125 cc an hour. Repeat sodium level this afternoon. Wean vasopressors. Bolus with 0.9% normal saline if needed. Avoid nephrotoxins. Continue to monitor renal function and urine output. Thank you for the consultation. I will continue to follow the patient with you during his hospital stay.
[2024-09-28 10:42] LABS: Glucose,Whole Blood 306 mg/dL (70-110)
[2024-09-28] MEDS: ASPIRIN 81 MG PO SCH (10:50)
[2024-09-28] MEDS: TICAGRELOR 90 MG TAB PO SCH (10:50)
[2024-09-28] MEDS: INSULIN LISPRO (HumaLOG) 100 UNIT/ML 10 mL VL SQ SCH (10:51)
[2024-09-28] MEDS: POTASSIUM CHLORIDE 10 MEQ in WATER FOR INJECTION 1 100ML.BAG IVPB SCH (10:51)
[2024-09-28] MEDS: ENOXAPARIN 40 MG/0.4 ML SYRINGE SQ SCH (10:51)
--- NOTE | 2024-09-28 11:11 | PN ---
PROGRESS NOTE SUBJECTIVE: Red is a 69-year-old gentleman who presented to hospital with acute inferior wall myocardial infarction, underwent emergent cardiac catheterization by me that revealed an occluded right coronary artery proximally and severe stenosis involving mid LAD and [place] circumflex coronary artery. The patient flow coordinator initially attempted angioplasty of the right coronary artery, but was unsuccessful. He went on to do angioplasty with stent placement of proximal and mid LAD. The patient is in the ICU and the primary problem at the moment is confusion and agitation. He is also hypotensive. OBJECTIVE: VITAL SIGNS: Heart rate is 60 beats per minute, blood pressure is 93/67, respiratory rate is 18. CHEST: Reveals good air entry bilaterally. HEART: Reveals first and second heart sounds. No gallop. EXTREMITIES: Did not reveal any edema. Peripheral pulses are felt. LABORATORY DATA: His labs show that the sodium is 160, BUN is 56, creatinine is 1.1. Blood sugar is 258, which is quite an improvement from the more than 600 when he first arrived. Hemoglobin is 15.7. ASSESSMENT: 1. Acute inferior wall myocardial infarction. 2. Severe uncontrolled diabetes. 3. Confusion and agitation. 4. Hypotension. PLAN: I will obtain a 2D echo on him. Start him on IV fluids and treat him with Levophed. Prognosis is guarded. I spoke to the girlfriend who is at bedside. Addendum: I reevaluated the patient around 11.30 patient remains hypotensive in spite of the Levophed. I also started him on dopamine as his heart rates were in the 50s. It appeared like patient was not junctional rhythm. Echocardiogram revealed an ejection fraction of 10 to 15%. Patient is in cardiogenic shock. I spoke to Dr. Iverson the patient flow coordinator who performed his angioplasty and the decision was made to take the patient for placement of an Impella device and the temporary pacemaker. Patient's prognosis is poor I spoke to his daughter and informed her of his condition. MMODL / IJN: [id number] / [facility] Ann
[2024-09-28 11:27] LABS: Glucose,Whole Blood 330 mg/dL (70-110)
[2024-09-28] MEDS: DOPamine DRIP 800 MG in DEXTROSE/WATER 1 250ML.BAG IV SCH (11:34)
[2024-09-28] MEDS: SODIUM CHLORIDE 0.9% 500 ML 500 ML IV ONE ×2 (11:36→12:42)
--- NOTE | 2024-09-28 12:14 | CA ---
Transthoracic Echo Report Name: Red Vizcaino Age: 69 Gender: M : 1955 Exam Date: 09/28/2024 08:48 Exam Location: [place] [facility] Ht (in): 73 Wt (lb): 171 Ordering Physician: Ben Hale MD ([id number]) Attending/Referring Phys: Alexia HUERTA Psych Np Jocelyn Malone RDCS Procedure CPT: Indications: post stemi with stent placement Cardiac Hx: 2 stents LAD Technical Quality: Fair Contrast 1: Definity Total Dose (mL): 3 Contrast 2: Total Dose (mL): MEASUREMENTS (Male / Female) Normal Values 2D ECHO LV Diastolic Diameter PLAX 4.5 cm 4.2 - 5.9 / 3.9 - 5.3 cm LV Systolic Diameter PLAX 3.8 cm IVS Diastolic Thickness 1.2 cm 0.6 - 1.0 / 0.6 - 0.9 cm LVPW Diastolic Thickness 1.1 cm 0.6 - 1.0 / 0.6 - 0.9 cm LV Relative Wall Thickness 0.5 LVOT Diameter 2.4 cm Aortic Root Diameter 3.4 cm LV Diastolic Volume MOD BP 90.3 cm??? 67 - 155 / 56 - 104 cm??? LV Systolic Volume MOD BP 69.8 cm??? 22 - 58 / 19 - 49 cm??? LV Ejection Fraction MOD BP 22.7 % >= 55 % LV Cardiac Index MOD BP 513.1 cm???/min???m??? LV Diastolic Volume MOD 4C 82.4 cm??? LV Systolic Volume MOD 4C 70.6 cm??? LV Ejection Fraction MOD 4C 14.4 % LV Cardiac Index MOD 4C 296.5 cm???/min???m??? LV Diastolic Length 4C 9.1 cm LV Systolic Length 4C 8.9 cm LV Diastolic Volume MOD 2C 97.4 cm??? LV Systolic Volume MOD 2C 62.5 cm??? LV Ejection Fraction MOD 2C 35.9 % LV Cardiac Index MOD 2C 875.1 cm???/min???m??? LV Diastolic Length 2C 8.9 cm LV Systolic Length 2C 8.0 cm Ascending Aorta Diameter 4.2 cm M-MODE LV Diastolic Diameter MM 5.5 cm 4.2 - 5.9 / 3.9 - 5.3 cm LV Systolic Diameter MM 4.8 cm LV Cardiac Index MM Teich 982.5 cm???/min???m??? IVS Diastolic Thickness MM 2.0 cm 0.6 - 1.0 / 0.6 - 0.9 cm LVPW Diastolic Thickness MM 1.5 cm 0.6 - 1.0 / 0.6 - 0.9 cm LV Relative Wall Thickness MM 0.6 0.24 - 0.42 / 0.22 - 0.42 LV Mass Index MM 225.5 g/m??? 49 - 115 / 43 - 95 g/m??? DOPPLER AV Peak Velocity 112.1 cm/s AV Peak Gradient 5.0 mmHg AV Mean Velocity 89.3 cm/s AV Mean Gradient 3.4 mmHg AV Velocity Time Integral 16.5 cm LVOT Peak Velocity 79.5 cm/s LVOT Peak Gradient 2.5 mmHg LVOT Velocity Time Integral 9.1 cm LVOT Stroke Volume 39.6 cm??? LVOT Stroke Volume Index 19.7 ml/m??? LVOT Cardiac Index 992.5 cm???/min???m??? AV Area Cont Eq vti 2.4 cm??? AV Area Cont Eq pk 3.1 cm??? Mitral E Point Velocity 39.9 cm/s Mitral A Point Velocity 28.5 cm/s Mitral E to A Ratio 1.4 MV Deceleration Time 119.8 ms MV E' Velocity 4.1 cm/s Mitral E to MV E' Ratio 9.7 TR Peak Velocity 136.5 cm/s TR Peak Gradient 7.5 mmHg Right Atrial Pressure 20.0 mmHg Pulmonary Artery Systolic Pressu 27.5 mmHg Right Ventricular Systolic Press 27.5 mmHg PV Peak Velocity 41.1 cm/s PV Peak Gradient 0.7 mmHg FINDINGS Left Ventricle Left ventricular ejection fraction is estimated at 15-20 %. Severely increased left ventricular mass. Mildly increased septal wall thickness. Moderately increased posterior wall thickness. Severely decreased fractional shortening. Severely decreased midwall fractional shortening. Mildly increased left ventricular systolic volume. Severely increased left ventricular relative wall thickness. Severely decreased left ventricular ejection fraction with regional variability. Right Ventricle Mild right ventricular dilatation. Severely reduced right ventricular global systolic function. Right ventricular systolic pressure within normal limits. Right Atrium Normal right atrial size. Left Atrium Normal left atrial size. Mitral Valve Structurally normal mitral valve. No evidence for mitral valve prolapse. No mitral stenosis. Trace to mild mitral regurgitation. Aortic Valve Trileaflet aortic valve. Aortic valve sclerosis. No aortic stenosis. Trace aortic regurgitation. Tricuspid Valve Structurally normal tricuspid valve. No tricuspid stenosis. Mild tricuspid regurgitation. Pulmonic Valve Structurally normal pulmonic valve. No pulmonic stenosis. No pulmonic regurgitation. Pericardium No pericardial effusion. Aorta Aortic annulus normal. Mildly dilated proximal ascending aorta (tube). CONCLUSIONS Left ventricular ejection fraction 15 to 20% Moderate to severely increased left ventricular wall thickness with somewhat more pronounced in the septum. No significant LVOT gradient Trace to mild mitral regurgitation Mild tricuspid regurgitation No pericardial effusion Previewed by: Dr. Eusebio Iverson DO (Electronically Signed) Final Date: 28 September 2024 12:13
[2024-09-28] MEDS: MORPHINE SULFATE 4 MG/ML SYRINGE IVP STA (12:39)
[2024-09-28] MEDS: LORazepam 1 MG/0.5 ML VIAL IV STA (12:40)
[2024-09-28] MEDS: CISATRACURIUM 2 MG/ML 5 ML VIAL IV ONE (12:41)
[2024-09-28] MEDS: SUCCINYLCHOLINE CHLORIDE 200 MG/10 ML VIAL IV STA (12:41)
--- NOTE | 2024-09-28 12:59 | P.CNNES ---
History of Present Illness Consult date: 09/28/24 Requesting physician: Ben Hale Reason for Consult: altered mental status History of Present Illness: This is a 69 year-old gentleman who presents to the hospital because of lightheadedness and increased lethargy. History is obtain from his girlfriend who is at bedside and medical records. Per the girlfriend the patient has history of diabetes and he notified her it was controlled with his weight loss. Otherwise his girlfriend does not know much about his medical history. Patient denies history of stroke. No alcohol use or liccit drug use. But on presentation serum glucose is 961 and acetone is positive. His HbA1c is 13.3. Troponin is 36, roberta is 146 and currently is currently is 162. Per the nurse, his stolic blood pressure was in 60's and patient is on norepinephrine. Review of Systems Limited but as per HPI. Past Medical History Past Medical History: Diabetes Mellitus, Hypertension Last Myocardial Infarction Date:: 09/27/2024 History of Any Multi-Drug Resistant Organisms: None Reported Past Surgical History: No Surgical Hx Reported Past Anesthesia/Blood Transfusion Reactions: No Reported Reaction Date of Last Stent Placement:: 09/27/2024 Smoking Status: Never smoker Past Alcohol Use History: Unable to Obtain Past Drug Use History: Marijuana - Past Family History Brother(s) Family Medical History: Diabetes Mellitus, Myocardial Infarction ([place]) Additional Family Medical History / Comment(s): Brother Cooper - [place] w/ stents Brother Fredi - [place], HTN Mother Family Medical History: Diabetes Mellitus, Myocardial Infarction ([place]) Medications and Allergies Home Medications Medication Instructions Recorded Confirmed Type Losartan [Cozaar] 50 mg PO DAILY 09/27/24 09/27/24 History Allergies Allergy/AdvReac Type Severity Reaction Status Date / Time No Known Allergies Allergy Verified 09/27/24 16:48 Physical Examination - Vital Signs Vital Signs: Vital Signs Temp Pulse Resp BP Pulse Ox FiO2 09/28/24 12:35 100 09/28/24 12:22 98 09/28/24 07:00 50 L 18 82/60 87 L 09/28/24 06:00 51 L 29 H 73/60 09/28/24 05:00 53 L 32 H 123/58 91 L 09/28/24 04:00 98.2 F 62 25 H 93/67 98 09/28/24 03:00 55 L 29 H 110/67 97 09/28/24 02:00 54 L 27 H 131/111 98 09/28/24 01:00 63 28 H 120/44 95 09/28/24 00:16 53 L 28 H 101/80 94 L 09/28/24 00:15 53 L 28 H 101/80 94 L 09/28/24 00:00 97.9 F 54 L 28 H 97/71 98 09/27/24 23:45 54 L 28 H 97/65 100 09/27/24 23:30 53 L 28 H 106/68 96 09/27/24 23:15 54 L 28 H 112/81 09/27/24 23:00 56 L 28 H 110/78 97 09/27/24 22:45 53 L 27 H 98/82 100 09/27/24 22:30 54 L 29 H 94/75 98 09/27/24 22:15 54 L 26 H 97/70 98 09/27/24 22:00 53 L 28 H 115/69 99 09/27/24 21:45 53 L 27 H 111/71 97 09/27/24 21:30 63 27 H 113/83 99 09/27/24 21:15 53 L 28 H 95/72 99 09/27/24 21:00 52 L 27 H 107/42 99 09/27/24 20:45 53 L 26 H 107/71 100 09/27/24 20:30 52 L 29 H 99/68 99 09/27/24 20:15 52 L 27 H 102/69 09/27/24 20:00 97.5 F L 51 L 29 H 93/66 99 09/27/24 19:00 51 L 24 115/77 100 09/27/24 18:45 50 L 22 100/73 100 09/27/24 18:30 51 L 18 09/27/24 18:27 54 L 18 120/81 96 09/27/24 16:06 55 L 20 123/79 99 09/27/24 15:51 66 20 140/117 96 Intake and Output 09/27/24 09/28/24 09/28/24 22:59 06:59 14:59 Intake Total 8098.253 8893.621 106.467 Output Total 0 800 Balance 1601.309 613.621 106.467 Intake: IV 1593 1373 100 D5-0.45% NaCl with KCl 600 20Meq/l 1,000 ml @ 150 mls/hr IV .Q6H40M [facility] Rx# :[id number] Dextrose 5% in Water 1, 100 100 000 ml @ 100 mls/hr IV . Q10H [facility] Rx#:[id number] Empty Bag 1 bag @ 1 ML/KG 292 73 /HR 72.575 mls/hr IV . [id number] ONE with Sodium Chloride 0.9% 1,000 ml Rx #:[id number] Sodium Chloride 0.9% 1, 400 600 000 ml @ 200 mls/hr IV . Q5H [facility] Rx#:[id number] Intake, IV Titration 8.309 40.621 6.467 Amount DOPamine DRIP 800 mg In 0.849 Dextrose/Water 1 250ml. bag @ 5 MCG/KG/MIN 7.275 mls/hr IV .Q24H [facility] Rx#: [id number] Insulin Regular 100 unit 40.621 In Sodium Chloride 0.9% 100 ml @ 0.1 UNITS/KG/HR 7.33 mls/hr IV .[id number] [facility] Rx#:[id number] Norepinephrine 8 mg In 8.309 5.618 Sodium Chloride 0.9% 250 ml @ 0.03 MCG/KG/MIN 4. 213 mls/hr IV .Q24H [facility] Rx#:[id number] Output: Urine 0 800 Other: Voiding Method External Catheter External Catheter Weight 72.575 kg 77.6 kg General: Lying in bed and is not in acute distress. Neuro: Limited. The patient is drowsy but is awakeable to voice. Stated correctly he is in the hospital with options and correctly stated current year. He is following simple commands. No aphasia from limited language. Pupils are 4mm, round and reactive to light. No facial weakness. No dysarthria. Motor: Hard to assess individual muscle strength because of his cooperation, but is lifting all extremities above gravity and appears symmetrical. Results - Laboratory Findings CBC and BMP: 09/28/24 03:54 09/28/24 08:18 Abnormal Lab Findings: Abnormal Labs 09/27/24 09/27/24 09/27/24 15:58 15:58 15:58 WBC 11.23 H RBC 6.21 H Hgb 18.5 H Hct 55.3 H MPV 12.5 H Immature Gran # 0.05 H Neutrophils # 9.47 H Monocytes # Eosinophils # 0.00 L APTT 19.2 L VBG pH VBG HCO3 Sodium 146 H Potassium 5.4 H Chloride BUN 75 H Creatinine 1.47 H Glucose 961 H* POC Glucose (mg/dL) Hemoglobin A1c Plasma Lactic Acid Dimitri Calcium ALT 143 H Troponin I Total Protein Albumin 09/27/24 09/27/24 09/27/24 15:58 15:58 15:58 WBC RBC Hgb Hct MPV Immature Gran # Neutrophils # Monocytes # Eosinophils # APTT VBG pH 7.30 L VBG HCO3 23 L Sodium Potassium Chloride BUN Creatinine Glucose POC Glucose (mg/dL) >600 H* Hemoglobin A1c Plasma Lactic Acid Dimitri Calcium ALT Troponin I 36.600 H* Total Protein Albumin 09/27/24 09/27/24 09/27/24 15:58 17:46 18:28 WBC RBC Hgb Hct MPV Immature Gran # Neutrophils # Monocytes # Eosinophils # APTT VBG pH VBG HCO3 Sodium Potassium Chloride BUN Creatinine Glucose POC Glucose (mg/dL) >600 H* >600 H* Hemoglobin A1c 13.3 H Plasma Lactic Acid Dimitri Calcium ALT Troponin I Total Protein Albumin 09/27/24 09/27/24 09/27/24 19:14 19:29 20:04 WBC RBC Hgb Hct MPV Immature Gran # Neutrophils # Monocytes # Eosinophils # APTT 74.6 H VBG pH VBG HCO3 Sodium Potassium Chloride BUN Creatinine Glucose POC Glucose (mg/dL) 585 H* 546 H* Hemoglobin A1c Plasma Lactic Acid Dimitri Calcium ALT Troponin I Total Protein Albumin 09/27/24 09/27/24 09/27/24 21:16 22:07 23:08 WBC RBC Hgb Hct MPV Immature Gran # Neutrophils # Monocytes # Eosinophils # APTT VBG pH VBG HCO3 Sodium Potassium Chloride BUN Creatinine Glucose POC Glucose (mg/dL) 495 H 436 H 357 H Hemoglobin A1c Plasma Lactic Acid Dimitri Calcium ALT Troponin I Total Protein Albumin 09/28/24 09/28/24 09/28/24 00:06 00:08 01:16 WBC RBC Hgb Hct MPV Immature Gran # Neutrophils # Monocytes # Eosinophils # APTT VBG pH VBG HCO3 Sodium 158 H Potassium Chloride 121 H BUN 59 H Creatinine Glucose 316 H POC Glucose (mg/dL) 309 H 172 H Hemoglobin A1c Plasma Lactic Acid Dimitri Calcium ALT Troponin I Total Protein Albumin 09/28/24 09/28/24 09/28/24 02:07 03:01 03:54 WBC RBC Hgb Hct MPV Immature Gran # Neutrophils # Monocytes # Eosinophils # APTT VBG pH VBG HCO3 Sodium 160 H Potassium Chloride 126 H BUN 56 H Creatinine Glucose 119 H POC Glucose (mg/dL) 126 H 124 H Hemoglobin A1c Plasma Lactic Acid Dimitri Calcium 8.2 L ALT 94 H Troponin I Total Protein 5.9 L Albumin 3.3 L 09/28/24 09/28/24 09/28/24 03:54 04:13 05:21 WBC 11.96 H RBC Hgb Hct MPV Immature Gran # Neutrophils # 9.45 H Monocytes # 1.11 H Eosinophils # 0.02 L APTT VBG pH VBG HCO3 Sodium Potassium Chloride BUN Creatinine Glucose POC Glucose (mg/dL) 135 H 186 H Hemoglobin A1c Plasma Lactic Acid Dimitri Calcium ALT Troponin I Total Protein Albumin 09/28/24 09/28/24 09/28/24 06:31 07:37 08:18 WBC RBC Hgb Hct MPV Immature Gran # Neutrophils # Monocytes # Eosinophils # APTT VBG pH VBG HCO3 Sodium 162 H* Potassium Chloride BUN Creatinine Glucose POC Glucose (mg/dL) 223 H 258 H Hemoglobin A1c Plasma Lactic Acid Dimitri Calcium ALT Troponin I Total Protein Albumin 09/28/24 09/28/24 09/28/24 10:41 10:56 11:25 WBC RBC Hgb Hct MPV Immature Gran # Neutrophils # Monocytes # Eosinophils # APTT VBG pH VBG HCO3 Sodium Potassium Chloride BUN Creatinine Glucose POC Glucose (mg/dL) 306 H 330 H Hemoglobin A1c Plasma Lactic Acid Dimitri 10.3 H* Calcium ALT Troponin I Total Protein Albumin Assessment and Plan Assessment: This is a 69 y/o gentleman with hx of DM who presents to EMS because of lightheadedness, increased lethargy. He was found to be in DKA. His hBA1cl is 13.3, hypernatremia Altered mental status due to metabolic encephalopathy DKA--resolved Hypernatremia--likely dehydration Elevated troponin Hypotensive and requiring pressors History of DM that is uncontrolled with HbA1c: 13.3 History of HTN History of Hyperlipidemia Plan: Ordered CT head to rule out any acute or subacute stroke/intracranial lesion that is new which I feel unlikely Will defer the rest of medical management to primary and other specialist. The plan s discussed with patient, his girlfriend and his nurse. Thank you for the consultation Time with Patient: Greater than 30
[2024-09-28 13:28] VITALS: BP 113/45
--- NOTE | 2024-09-28 13:53 | XR ---
EXAMINATION TYPE: XR chest 1V portable DATE OF EXAM: 09/28/2024 1:40 PM COMPARISON: Chest radiographs from 09/27/2024. CLINICAL INDICATION: Male, 69 years old with history of Tube placement; [facility] TECHNIQUE: XR chest 1V portable Frontal view of the chest. FINDINGS: Lungs/Pleura: There is no evidence of pleural effusion, focal consolidation, or pneumothorax. Pulmonary vascularity: Unremarkable. Heart/mediastinum: Cardiomediastinal silhouette is unremarkable. Musculoskeletal: No acute osseous pathology. Other findings: None Lines/Tubes: Endotracheal tube with distal tip 10.3 cm above the rayshawn. Nasogastric tube with its distal tip and side-port projecting under the diaphragm. Left central venous catheter with distal tip at the cavoatrial junction. IMPRESSION: Endotracheal tube high position and advancement of at least 7 cm recommended for optimal placement. No acute cardiopulmonary disease/process. [facility], Workstation: [facility], 09/28/2024 1:51 PM
[2024-09-28 14:00] VITALS: BMI 22.6
[2024-09-28] MEDS: LIDOCAINE 1% INJ 10MG/ML (20 ML MDV) SQ ONE (14:10)
[2024-09-28] MEDS: HEPARIN SODIUM 1,000 UN/ML (10ML VL) IVP ONE ×2 (14:35→15:21)
[2024-09-28 14:42] LABS: O2 Sat Blood Gas 63.1 %
[2024-09-28 14:44] LABS: O2 Sat Blood Gas 67.1 %
--- NOTE | 2024-09-28 14:55 | P.CNPUL ---
History of Present Illness Consult date: 09/28/24 Requesting physician: Vaishali Washington Reason for consult: chest pain Chief complaint: Lightheadedness, and increased lethargy. History of present illness: Pulmonary consult dated September 28, 2024. This is a 69-year-old male who apparently was seen in the emergency department, on September 27. He apparently came in by EMS, with a history of uncontrolled diabetes, hypertension, hyperlipidemia, complaining of lightheadedness, and increased lethargy. He was also found to have elevated blood sugars, by EMS. When he came in, he was awake and alert. He had no chest pain or chest discomfort. He apparently had no shortness of breath. The patient was further evaluated, and ended up having a ST segment elevation myocardial infarction, was admitted to the hospital specifically ICU, and underwent catheterization, with 2 stents placed in the LAD. He also was found to have diabetic ketoacidosis. He was in the intensive care unit this morning when we rounded, but after we left the unit, we will call back to see him in consultation. He is currently on norepinephrine at 7.7 mcg/min, and dopamine at 10 mcg/kg/min. He is receiving room air. He apparently became quite bradycardic, with heart rates between 46 and 52 bpm, and he was hypotensive. The patient did receive 500 cc of normal saline. We ordered a stat TSH and cortisol. His lactic acid was 10.3. He apparently has a history of hypertension. I was called by one of the prosthetics technician, as the patient was going to go to the catheterization laboratory, to have an Impella placed. He asked me if I would go ahead and intubate the p atient. I did, I placed a #8 endotracheal tube, using a #3 Andreia blade, with a standard laryngoscope. I also placed a left subclavian triple-lumen catheter. Current laboratory data includes a white count of 11.96, hemoglobin 15.7, hematocrit 48, and a platelet count 202,000. PTT was 74.6. Sodium 162, potassium 3.8, chlorides 126, CO2 27, BUN 56, creatinine 1.14. Glucose was 119. Lactic acid was 10.3. Calcium 8.2. ALT was 94, down from 143. Acetone on admission was positive. Chest x-ray shows an endotracheal tube which is 7 cm above the tracheal rayshawn. There is no complication from the central line placement. Review of Systems REVIEW OF SYSTEMS: CONSTITUTIONAL: Lethargy. NEUROLOGIC: Lightheadedness. HEENT: [ Negative.] CARDIAC: [Negative.] PULMONARY: [Negative.] GI: [Negative.] : [Negative.] RHEUMATOLOGIC: [ Negative.] IMMUNOLOGIC: [ Negative.] ENDOCRINE: [Negative. ] DERMATOLOGIC: [Negative.] Past Medical History Past Medical History: Diabetes Mellitus, Hypertension Last Myocardial Infarction Date:: 09/27/2024 History of Any Multi-Drug Resistant Organisms: None Reported Past Surgical History: No Surgical Hx Reported Past Anesthesia/Blood Transfusion Reactions: No Reported Reaction Date of Last Stent Placement:: 09/27/2024 Smoking Status: Never smoker Past Alcohol Use History: Unable to Obtain Past Drug Use History: Marijuana - Past Family History Brother(s) Family Medical History: Diabetes Mellitus, Myocardial Infarction ([place]) Additional Family Medical History / Comment(s): Brother Cooper - [place] w/ stents Brother Fredi - DM, HTN Mother Family Medical History: Diabetes Mellitus, Myocardial Infarction ([place]) Medications and Allergies Home Medications Medication Instructions Recorded Confirmed Type Losartan [Cozaar] 50 mg PO DAILY 09/27/24 09/27/24 History Allergies Allergy/AdvReac Type Severity Reaction Status Date / Time No Known Allergies Allergy Verified 09/27/24 16:48 Physical Exam Osteopathic Statement: *. No significant issues noted on an osteopathic structural exam other than those noted in the History and Physical/Consult. Vitals: Vital Signs Temp Pulse Resp BP Pulse Ox FiO2 09/28/24 13:17 100 09/28/24 13:15 60 20 113/45 100 09/28/24 13:00 57 L 20 100 09/28/24 12:45 56 L 20 107/83 100 09/28/24 12:35 100 09/28/24 12:30 53 L 18 96/64 83 L 09/28/24 12:22 98 09/28/24 12:15 53 L 22 88/33 09/28/24 12:00 56 L 24 80/52 09/28/24 11:45 49 L 24 82/56 100 09/28/24 11:30 49 L 24 87/58 85 L 09/28/24 11:15 46 L 24 94/65 100 09/28/24 11:00 50 L 24 82/58 97 09/28/24 10:45 49 L 24 96/57 09/28/24 10:30 48 L 24 62/52 97 09/28/24 10:15 49 L 24 78/51 100 09/28/24 10:00 96.0 F L 49 L 24 78/54 96 09/28/24 09:45 51 L 24 66/51 96 09/28/24 09:30 51 L 24 76/60 100 09/28/24 09:15 50 L 18 66/53 98 09/28/24 09:00 49 L 18 91/50 99 09/28/24 08:45 50 L 18 63/40 98 09/28/24 08:30 51 L 18 63/40 94 L 09/28/24 08:15 50 L 20 63/40 94 L 09/28/24 08:00 50 L 18 72/52 98 09/28/24 07:00 50 L 18 82/60 87 L 09/28/24 06:00 51 L 29 H 73/60 09/28/24 05:00 53 L 32 H 123/58 91 L 09/28/24 04:00 98.2 F 62 25 H 93/67 98 09/28/24 03:00 55 L 29 H 110/67 97 09/28/24 02:00 54 L 27 H 131/111 98 09/28/24 01:00 63 28 H 120/44 95 09/28/24 00:16 53 L 28 H 101/80 94 L 09/28/24 00:15 53 L 28 H 101/80 94 L 09/28/24 00:00 97.9 F 54 L 28 H 97/71 98 09/27/24 23:45 54 L 28 H 97/65 100 09/27/24 23:30 53 L 28 H 106/68 96 09/27/24 23:15 54 L 28 H 112/81 09/27/24 23:00 56 L 28 H 110/78 97 09/27/24 22:45 53 L 27 H 98/82 100 09/27/24 22:30 54 L 29 H 94/75 98 09/27/24 22:15 54 L 26 H 97/70 98 09/27/24 22:00 53 L 28 H 115/69 99 09/27/24 21:45 53 L 27 H 111/71 97 09/27/24 21:30 63 27 H 113/83 99 09/27/24 21:15 53 L 28 H 95/72 99 09/27/24 21:00 52 L 27 H 107/42 99 09/27/24 20:45 53 L 26 H 107/71 100 09/27/24 20:30 52 L 29 H 99/68 99 09/27/24 20:15 52 L 27 H 102/69 09/27/24 20:00 97.5 F L 51 L 29 H 93/66 99 09/27/24 19:00 51 L 24 115/77 100 09/27/24 18:45 50 L 22 100/73 100 09/27/24 18:30 51 L 18 09/27/24 18:27 54 L 18 120/81 96 09/27/24 16:06 55 L 20 123/79 99 09/27/24 15:51 66 20 140/117 96 Intake and Output 09/27/24 09/28/24 09/28/24 22:59 06:59 14:59 Intake Total 4703.435 5867.621 1906.467 Output Total 0 800 40 Balance 1601.309 363.092 2664.467 Intake: IV 1593 1373 800 D5-0.45% NaCl with KCl 600 20Meq/l 1,000 ml @ 150 mls/hr IV .Q6H40M [facility] Rx# :[id number] Dextrose 5% in Water 1, 100 800 000 ml @ 125 mls/hr IV . Q8H [facility] Rx#:[id number] Empty Bag 1 bag @ 1 ML/KG 292 73 /HR 72.575 mls/hr IV . [id number] ONE with Sodium Chloride 0.9% 1,000 ml Rx #:[id number] Sodium Chloride 0.9% 1, 400 600 000 ml @ 200 mls/hr IV . Q5H [facility] Rx#:[id number] Intake, IV Titration 8.309 40.621 1106.467 Amount DOPamine DRIP 800 mg In 0.849 Dextrose/Water 1 250ml. bag @ 5 MCG/KG/MIN 7.275 mls/hr IV .Q24H [facility] Rx#: [id number] Insulin Regular 100 unit 40.621 In Sodium Chloride 0.9% 100 ml @ 0.1 UNITS/KG/HR 7.33 mls/hr IV .[id number] [facility] Rx#:[id number] Norepinephrine 8 mg In 8.309 5.618 Sodium Chloride 0.9% 250 ml @ 0.03 MCG/KG/MIN 4. 213 mls/hr IV .Q24H [facility] Rx#:[id number] Potassium Chloride 10 meq 100 In Water For Injection 1 100ml.bag @ 100 mls/hr IVPB Q1H [facility] Rx#: [id number] Sodium Chloride 0.9% 500 1000 ml 500 ml @ 999 mls/hr IV .Q31M [facility] Rx#:[id number] Output: Urine 0 800 40 Other: Voiding Method External Catheter External Catheter Weight 72.575 kg 77.6 kg 77.6 kg No acute distress, lethargic, but arousable. Currently on room air. HEENT examination is grossly unremarkable. Mucous membranes are moist. No oral lesions. Edentulous. Neck supple. Full range of motion. No adenopathy thyromegaly or neck vein distention. Cardiovascular examination reveals regular rhythm rate. S1-S2 normal. No S3 or S4. No discernible murmur noted. Heart sounds are distant. Lungs reveal clear breath sounds. Breath sounds are equal bilaterally. No adventitious lung sounds including wheezes rhonchi or crackles. Abdomen soft bowel sounds are heard. No masses or tenderness. Extremities are intact. No cyanosis clubbing or edema. Skin is without rash or lesion. Neurologic examination is difficult to assess. Results - Laboratory Findings CBC and BMP: 09/28/24 03:54 09/28/24 08:18 PT/INR, D-dimer PT 11.8 sec (10.0-12.5) 09/27/24 19:29 INR 1.1 (<1.2) 09/27/24 19:29 Abnormal lab findings: Abnormal Labs 09/27/24 09/27/24 09/27/24 15:58 15:58 15:58 WBC 11.23 H RBC 6.21 H Hgb 18.5 H Hct 55.3 H MPV 12.5 H Immature Gran # 0.05 H Neutrophils # 9.47 H Monocytes # Eosinophils # 0.00 L APTT 19.2 L VBG pH VBG HCO3 Sodium 146 H Potassium 5.4 H Chloride BUN 75 H Creatinine 1.47 H Glucose 961 H* POC Glucose (mg/dL) Hemoglobin A1c Plasma Lactic Acid Dimitri Calcium ALT 143 H Troponin I Total Protein Albumin 09/27/24 09/27/24 09/27/24 15:58 15:58 15:58 WBC RBC Hgb Hct MPV Immature Gran # Neutrophils # Monocytes # Eosinophils # APTT VBG pH 7.30 L VBG HCO3 23 L Sodium Potassium Chloride BUN Creatinine Glucose POC Glucose (mg/dL) >600 H* Hemoglobin A1c Plasma Lactic Acid Dimitri Calcium ALT Troponin I 36.600 H* Total Protein Albumin 09/27/24 09/27/24 09/27/24 15:58 17:46 18:28 WBC RBC Hgb Hct MPV Immature Gran # Neutrophils # Monocytes # Eosinophils # APTT VBG pH VBG HCO3 Sodium Potassium Chloride BUN Creatinine Glucose POC Glucose (mg/dL) >600 H* >600 H* Hemoglobin A1c 13.3 H Plasma Lactic Acid Dimitri Calcium ALT Troponin I Total Protein Albumin 09/27/24 09/27/24 09/27/24 19:14 19:29 20:04 WBC RBC Hgb Hct MPV Immature Gran # Neutrophils # Monocytes # Eosinophils # APTT 74.6 H VBG pH VBG HCO3 Sodium Potassium Chloride BUN Creatinine Glucose POC Glucose (mg/dL) 585 H* 546 H* Hemoglobin A1c Plasma Lactic Acid Dimitri Calcium ALT Troponin I Total Protein Albumin 09/27/24 09/27/24 09/27/24 21:16 22:07 23:08 WBC RBC Hgb Hct MPV Immature Gran # Neutrophils # Monocytes # Eosinophils # APTT VBG pH VBG HCO3 Sodium Potassium Chloride BUN Creatinine Glucose POC Glucose (mg/dL) 495 H 436 H 357 H Hemoglobin A1c Plasma Lactic Acid Dimitri Calcium ALT Troponin I Total Protein Albumin 09/28/24 09/28/24 09/28/24 00:06 00:08 01:16 WBC RBC Hgb Hct MPV Immature Gran # Neutrophils # Monocytes # Eosinophils # APTT VBG pH VBG HCO3 Sodium 158 H Potassium Chloride 121 H BUN 59 H Creatinine Glucose 316 H POC Glucose (mg/dL) 309 H 172 H Hemoglobin A1c Plasma Lactic Acid Dimitri Calcium ALT Troponin I Total Protein Albumin 09/28/24 09/28/24 09/28/24 02:07 03:01 03:54 WBC RBC Hgb Hct MPV Immature Gran # Neutrophils # Monocytes # Eosinophils # APTT VBG pH VBG HCO3 Sodium 160 H Potassium Chloride 126 H BUN 56 H Creatinine Glucose 119 H POC Glucose (mg/dL) 126 H 124 H Hemoglobin A1c Plasma Lactic Acid Dimitri Calcium 8.2 L ALT 94 H Troponin I Total Protein 5.9 L Albumin 3.3 L 09/28/24 09/28/24 09/28/24 03:54 04:13 05:21 WBC 11.96 H RBC Hgb Hct MPV Immature Gran # Neutrophils # 9.45 H Monocytes # 1.11 H Eosinophils # 0.02 L APTT VBG pH VBG HCO3 Sodium Potassium Chloride BUN Creatinine Glucose POC Glucose (mg/dL) 135 H 186 H Hemoglobin A1c Plasma Lactic Acid Dimitri Calcium ALT Troponin I Total Protein Albumin 09/28/24 09/28/24 09/28/24 06:31 07:37 08:18 WBC RBC Hgb Hct MPV Immature Gran # Neutrophils # Monocytes # Eosinophils # APTT VBG pH VBG HCO3 Sodium 162 H* Potassium Chloride BUN Creatinine Glucose POC Glucose (mg/dL) 223 H 258 H Hemoglobin A1c Plasma Lactic Acid Dimitri Calcium ALT Troponin I Total Protein Albumin 09/28/24 09/28/24 09/28/24 10:41 10:56 11:25 WBC RBC Hgb Hct MPV Immature Gran # Neutrophils # Monocytes # Eosinophils # APTT VBG pH VBG HCO3 Sodium Potassium Chloride BUN Creatinine Glucose POC Glucose (mg/dL) 306 H 330 H Hemoglobin A1c Plasma Lactic Acid Dimitri 10.3 H* Calcium ALT Troponin I Total Protein Albumin - Diagnostic Findings Chest x-ray: image reviewed Assessment and Plan Assessment: S/P 2 stents to the LAD, in a patient with ST segment elevation myocardial infarction. S/P elective intubation, for eventual Impella placement. Severe cardiomyopathy, with an estimated ejection fraction of 15 to 20%. Acute diabetic ketoacidosis. Lactic acidemia. Severe hypernatremia, hyperchloremia. Severe hypotension, now currently on norepinephrine. Severe bradycardia, currently on dopamine. Severe cardiomyopathy, likely ischemic in nature. History of hypertension. Lactic acidemia. Plan: Plan dated September 28, 2024. The patient is seen today in room 262. The patient was electively intubated, for placement in the catheterization laboratory, of an Impella device. I was called by cardiology, and they asked me to go ahead and electively intubate the patient, which we did. The patient was intubated with a standard laryngoscope, a #3 Andreia blade, and I placed a #8 endotracheal tube. The patient also has a left subclavian triple-lumen catheter placed. All labs, x-rays, and medications are reviewed. We will continue to follow make recommendations along the way. The patient is apparently noncompliant with his home losartan, for blood pressure control. We will continue to follow make recommendations. Prognosis as mentioned, is guarded. Dictation was produced using [employer] software. Please excuse any grammatical, word or spelling errors. Time with Patient: Greater than 30
--- NOTE | 2024-09-28 15:11 | OP ---
OPERATIVE REPORT DATE OF SERVICE : PROCEDURE: Left subclavian triple-lumen catheter. PREOPERATIVE DIAGNOSIS: Administration of fluids and pressors. POSTOPERATIVE DIAGNOSIS: Administration of fluids and pressors. TRIPLE LUMEN CATHETER PLACEMENT: Indication: Hemodynamic monitoring/Intravenous access. A time-out was completed verifying correct patient, procedure, site, positioning, and implant(s) or special equipment if applicable. The patient was placed in a dependent position appropriate for triple lumen catheter placement based on the vein to be cannulated. The patient's left subclavian vein was prepped and draped in sterile fashion. 1% Lidocaine was used to anesthetize the surrounding skin area. A triple lumen 9F Cordis catheter was introduced into the subclavian vein using Seldinger technique. The catheter was threaded smoothly over the guide wire and appropriate blood return was obtained. Each lumen of the catheter was evacuated of air and flushed with sterile saline. The catheter was then sutured in place to the skin and a sterile dressing applied. Perfusion to the extremity distal to the point of catheter insertion was checked and found to be adequate. There was good blood return from all 3 ports. There was no immediate complication. The patient tolerated the procedure well. The catheter was sutured in place. A sterile dressing was applied by the nurse. A chest x-ray was ordered. It showed the tip of the catheter in the junction of superior vena cava and right atrium. MMODL / IJN: [id number] /
--- NOTE | 2024-09-28 15:14 | OP ---
OPERATIVE REPORT DATE OF SERVICE : PROCEDURE: Emergent intubation. PREOPERATIVE DIAGNOSIS: Impending respiratory failure. POSTOPERATIVE DIAGNOSIS: Impending respiratory failure. DESCRIPTION OF PROCEDURE: The patient was intubated with an #8 endotracheal tube. We used a standard laryngoscope with #3 Andreia blade. The patient was sedated initially with Ativan 2 mg, morphine 5 mg and 3 mL of 60 mg of succinylcholine for rapid sequence intubation. After intubation, the patient received 10 mg of Nimbex. The patient was positioned supine in bed. The patient was sedated. The patient was being monitored fully. He was being bagged with 100% oxygen. Once the patient was adequately sedated, the laryngoscope was positioned properly. I could see the glottic opening. Endotracheal tube was seen to pass through the glottic opening into the windpipe. The rigid scope was removed. The balloon was inflated on the endotracheal tube. The stylet was removed. There was good color change on the qualitative capnography device. There were good bilateral breath sounds. The endotracheal tube was secured. The patient was connected to the ventilator. There was no immediate complication. A chest x-ray was ordered to check placement. MMODL / IJN: [id number] /
[2024-09-28] MEDS: IOPAMIDOL-370 100ML BTL INTRATHECA ONE (15:21)
[2024-09-28] MEDS: HEPARIN SODIUM,PORCINE (1 ML) 2,500 UNIT in SODIUM CHLORIDE 0.9% 250 ML IRRIGATION ONE (15:22)
[2024-09-28] MEDS: SODIUM CHLORIDE 0.9% 250 ML IV ONE (15:22)
[2024-09-28] MEDS: HEPARIN SODIUM,PORCINE 10,000 UNIT in SODIUM CHLORIDE 0.9% 1,000 ML IRRIGATION ONE (15:22)
[2024-09-28] MEDS ORDERED: HEPARIN SODIUM 1,000 UN/ML (10ML VL) IV PRN ×2 (15:46→17:30)
--- NOTE | 2024-09-28 16:07 | P.PCN ---
Description of Procedure: PROCEDURES PERFORMED: Right heart catheterization, TVP placement, ultrasound guided arterial access, Impella CP placement, right iliac to SFA bypass by external sheath INDICATION: Shock, STEMI, bradycardia CONSENT:I have discussed the risks, benefits and alternative therapies for the above-mentioned procedure and for both sedation/analgesia as well as necessary blood product administration, if indicated, as they pertain to this patient. The patient has indicated understanding and acceptance of the risks and procedures discussed. PROCEDURE: After the risks, benefits and alternatives of the above mentioned procedure explained in detail with the patient's family, informed consent was obtained. Patient was taken to the catheterization lab and prepped and draped in usual fashion. Ultrasound guidance was used to assess for arterial and venous access. 1% lidocaine was used to anesthetize the left femoral vein. A 8- [place] sheath was placed in the left femoral vein using modified Seldinger technique and ultrasound guidance. An 8 [place]-Mk catheter was inserted into the right atrium, right ventricle, PA and pulmonary capillary wedge positions and pressure measurements and oxygen saturations were obtained. Thermal dilution was performed and showed severe decreased cardiac index 1.1. Therefore decision was made to place Impella CP. Using ultrasound guidance, right femoral access was obtained with micropuncture technique. A 6 [place] sheath was placed. 2 Perclose's were placed at the 10:00 and 2 o'clock position. Next the's sheath was upgraded to a 14 [place] Impella sheath. A pigtail was inserted into the left ventricle and then over a 0.018 wire, the pigtail was exchanged for the Impella CP device and this was placed in the left ventricle. Heparin had been given. The Impella CP was turned on with good flow and improvement in blood pressure. Angiogram was performed through the sheath which showed this being occlusive. Therefore decision made to perform bypass to antegrade stick. A 6 [place] sheath was placed in an antegrade fashion into the right SFA and then through the Impella sheath a 7 [place] sheath was placed. These were connected with a male to male connection and opened with good blood flow. Given concerns of intermittent junctional bradycardia decision made to place a temporary venous pacemaker. Temporary venous pacemaker was placed through the left femoral venous sheath and placed into the right ventricle and sensing and pacing thresholds were obtained with adequate capture. The patient tolerated the procedure well. Patient was transported back to the post catheterization holding area in stable condition. Conscious Sedation: Patient was monitored under the direct supervision of myself for conscious sedation using Versed and fentanyl for a total duration of 67 minutes HEMODYNAMICS: Aorta: 97/67, on pressors LV: 97/8, LVEDP 16 PCWP: 13 PA: 29/16 RV: 29/8 RA: 15 PA oxygen saturation: 63% Right femoral oxygen saturation: 100% Right atrium oxygen saturation: 67% Cardiac output by Noelle: 3.9 L/min Cardiac index by Noelle: 1.9 L/min/m Cardiac output by thermodilution: 2.3 L/min Cardiac index by thermodilution: 1.1 L/min/m FINAL IMPRESSION: 1. Cardiogenic shock 2. Increased left and right sided filling pressures 3. Status post Impella CP placement 4. Occlusive right femoral Impella sheath status post externalized bypass system from right iliac to right SFA 5. Status post TVP placement PLAN: 1. Aggressive risk factor modification per most recent ACC/AHA guidelines. 2. Attempt to wean Impella as able
[2024-09-28 16:09] LABS: Glucose,Whole Blood 341 mg/dL (70-110)
[2024-09-28] MEDS: SODIUM BICARB (1 MEQ/ML) 12.5 ML in DEXTROSE 5% IN WATER 500 ML IV SCH (16:24)
[2024-09-28 16:32] LABS: ABG Base Excess -6.5 mmol/L; ABG HCO3 19 mmol/L (21-25); ABG Oxygen Saturation >100.0 % (94-97); ABG PCO2 37 mmHg (35-45); ABG PH 7.32 (7.35-7.45); ABG TCO2 20 mmol/L (19-24)
[2024-09-28 16:34] LABS: ABG PO2 >420 mmHg (83-108); Allen Test Performed? no
[2024-09-28] MEDS: INSULIN REGULAR 100 UNIT in SODIUM CHLORIDE 0.9% 100 ML IV SCH (16:43)
[2024-09-28 16:47] LABS: Basophils # (A) 0.01 10*3/uL (0.00-0.10); Basophils % (A) 0.1 %; HCT 42.3 % (39.6-50.0); HGB 14.2 g/dL (13.0-17.0); Lymphocytes # (A) 0.81 10*3/uL (0.90-5.00); Lymphocytes % (A) 6.2 %; MCH 30.4 pg (27.0-32.0); MCHC 33.6 g/dL (32.0-37.0); MCV 90.6 fL (80.0-97.0); Mean Platelet Volume 12.2 fL (9.5-12.2); Monocytes # (A) 0.82 10*3/uL (0.20-1.00); Monocytes % (A) 6.3 %; Neutrophils # (A) 11.35 10*3/uL (1.80-7.70); Platelet Count 142 10*3/uL (140-440); RBC 4.67 10*6/uL (4.40-5.60); RDW 13.4 % (11.5-14.5); WBC 13.04 10*3/uL (4.50-10.00)
--- NOTE | 2024-09-28 16:52 | P.PN ---
Subjective Progress Note Date: 09/28/24 History of present illness; 69-year-old male with uncontrolled diabetes mellitus coronary artery disease hy pertension. Patient seems to be tired at this time unable to provide any meaningful history he confirm with his daughter is providing at bedside. She has not spoken to him in couple days he was not answering his phone she goes to his house to check on him and she found him lethargic and unable to take care of himself for which he brought him to the hospital for evaluation upon arrival initial blood work showed diabetic ketoacidosis however EKG showed ST elevation [place] for which she was rushed to the [facility] for evaluation patient did not really specifically reporting chest pain he was hurting all over. At the [facility] left heart cath was performed 95% occlusion of the LAD was stented with s uccessful PCI. Patient also found to have other moderate vessel disease and 100% occlusion of RCA with collaterals Patient denies tobacco smoking or heavy alcohol he admits to marijuana 09/28/2024 Patient seen and examined at bedside in the ICU. Patient has no complaints of pain but is seem confused. He continued to have bradycardia and was hypotensive as result of cardiogenic shock. He continued on Levophed and dopamine which did not improve his symptoms and decision was made to place TVP and Impella. Patient was mechanically intubated and sedated. Procedure went well without any known complications. He is being seen by pulmonology, cardiology and nephrology. Neurology has been consulted due to altered mental status and confusion. REVIEW OF SYSTEMS: Pertinent positives and negatives noted in HPI. PHYSICAL EXAMINATION: VITAL SIGNS: Reviewed GENERAL: Resting comfortably in bed. Obese. EYES: PERRL, no scleral injection or icterus. HENT: Normocephalic, atraumatic, hearing grossly intact, moist mucous membranes. CARDIOVASCULAR: S1 and S2 present. No murmurs, rubs, or gallops. PULMONARY: Chest is clear to auscultation, no wheezing, rhonchi, or crackles. ABDOMEN: Soft, nontender, nondistended. No palpable organomegaly. NEUROLOGICAL: Alert and oriented x 2. Gross neurological examination with no apparent focal deficits. EXTREMITIES: No pedal edema. SKIN: No apparent rashes. Today significant findings: Labs significant for WBC 11.9, sodium 160, potassium 3.8, chloride 126, BUN 56, glucose 119, lactic acid 10.3 Echocardiogram with findings of left ventricular ejection fraction 15 to 20%, moderate to severely increased left ventricular wall thickness with somewhat more pronounced in the septum. ASSESSMENT AND PLAN: In summary, patient is a 69-year-old male with diabetes mellitus coronary artery disease presented to the hospital lethargic found to be in DKA discussed case with ED doctor and accepted the admission for DKA and STEMI status post PCI stenting #ST elevation [place] #Cardiogenic shock, status post TVP and LV Impella placement #Metabolic encephalopathy likely due to above Initial troponin 36 Status post PCI stenting of a 95% occluded LAD. Continue Brilinta and aspirin and statin Continue Levophed and dopamine drip and propofol for sedation Lactic acid 10.3, continue to monitor and begin bicarb drip Neurology following Cardiology following Continued ICU care #Diabetic ketoacidosis Initial blood work showed glucose above 900, anion gap 19, bicarb 22 Continue insulin drip Continue IV fluid D5W Potassium replacement protocol #Hypernatremia Initially 146 => 160 Free water deficit of 7.4 L Continue IV D5W as above Monitor sodium closely Nephrology consulted #MIGUEL, improving Initially BUN 75 creatinine 1.47 Avoid nephrotoxic meds Continue with aggressive IV fluid hydration Monitor urine output Full code DVT prophylaxis on Lovenox 40 mg subcu daily Chronic Medical Conditions: -Resume home medications DVT ppx: Subq Lovenox 40 meq daily Code status: Full code F: IV fluids as above E: Monitor sodium and potassium N: Consistent carb diet A: Ambulatory Anticipated discharge time and place: Pending clinical course Romero Robbins MD Internal Medicine Resident, PGY1 Dictation was produced using [employer] dictation software. Please excuse any grammatical, word or spelling errors. I saw and evaluated the patient during the [place]wood and critical portions of this encounter, and discussed the case in detail with the resident author of this note, I agree with the Assessment and Plan, and my changes, if any, are highlighted in blue. Objective - Vital Signs Vital signs: Vital Signs Temp 98.2 F 09/28/24 04:00 Pulse 51 L 09/28/24 06:00 Resp 29 H 09/28/24 06:00 BP 73/60 09/28/24 06:00 Pulse Ox 91 L 09/28/24 05:00 FiO2 Intake & Output 09/27/24 09/28/24 09/28/24 18:59 06:59 18:59 Intake Total 902.03 2112.900 Output Total 800 Balance 902.03 1312.900 Weight 72.575 kg 77.6 kg Intake: IV 901 2065 D5-0.45% NaCl with KCl 600 20Meq/l 1,000 ml @ 150 mls/hr IV .Q6H40M [facility]ERVIN Rx# :[id number] Dextrose 5% in Water 1, 100 000 ml @ 100 mls/hr IV . Q10H [facility] Rx#:[id number] Empty Bag 1 bag @ 1 ML/KG 365 /HR 72.575 mls/hr IV . [id number] ONE with Sodium Chloride 0.9% 1,000 ml Rx #:[id number] Sodium Chloride 0.9% 1, 1000 000 ml @ 200 mls/hr IV . Q5H [facility] Rx#:[id number] Intake, IV Titration 1.03 47.900 Amount Insulin Regular 100 unit 40.621 In Sodium Chloride 0.9% 100 ml @ 0.1 UNITS/KG/HR 7.33 mls/hr IV .[id number] KERVIN Rx#:[id number] Norepinephrine 8 mg In 1.03 7.279 Sodium Chloride 0.9% 250 ml @ 0.03 MCG/KG/MIN 4. 213 mls/hr IV .Q24H [facility]ERVIN Rx#:[id number] Output: Urine 800 Other: Voiding Method External Catheter External Catheter - Labs CBC & Chem 7: 09/28/24 16:30 09/28/24 08:18 Labs: Abnormal Lab Results - Last 24 Hours (Table) 09/27/24 09/27/24 09/27/24 Range/Units 15:58 15:58 15:58 WBC 11.23 H (4.50-10.00) 10*3/uL RBC 6.21 H (4.40-5.60) 10*6/uL Hgb 18.5 H (13.0-17.0) g/dL Hct 55.3 H (39.6-50.0) % MPV 12.5 H (9.5-12.2) fL Immature Gran # 0.05 H (0.00-0.04) 10*3/uL Neutrophils # 9.47 H (1.80-7.70) 10*3/uL Monocytes # (0.20-1.00) 10*3/uL Eosinophils # 0.00 L (0.04-0.35) 10*3/uL APTT 19.2 L (22.0-30.0) sec VBG pH (7.31-7.41) VBG HCO3 (24-28) mmol/L Sodium 146 H (137-145) mmol/L Potassium 5.4 H (3.5-5.1) mmol/L Chloride (98-107) mmol/L BUN 75 H (9-20) mg/dL Creatinine 1.47 H (0.66-1.25) mg/dL Glucose 961 H* (74-99) mg/dL POC Glucose (mg/dL) (70-110) mg/dL Hemoglobin A1c (<=6.0) % Calcium (8.4-10.2) mg/dL ALT 143 H (4-49) U/L Troponin I (0.000-0.034) ng/mL Total Protein (6.3-8.2) g/dL Albumin (3.5-5.0) g/dL 09/27/24 09/27/24 09/27/24 Range/Units 15:58 15:58 15:58 WBC (4.50-10.00) 10*3/uL RBC (4.40-5.60) 10*6/uL Hgb (13.0-17.0) g/dL Hct (39.6-50.0) % MPV (9.5-12.2) fL Immature Gran # (0.00-0.04) 10*3/uL Neutrophils # (1.80-7.70) 10*3/uL Monocytes # (0.20-1.00) 10*3/uL Eosinophils # (0.04-0.35) 10*3/uL APTT (22.0-30.0) sec VBG pH 7.30 L (7.31-7.41) VBG HCO3 23 L (24-28) mmol/L Sodium (137-145) mmol/L Potassium (3.5-5.1) mmol/L Chloride (98-107) mmol/L BUN (9-20) mg/dL Creatinine (0.66-1.25) mg/dL Glucose (74-99) mg/dL POC Glucose (mg/dL) >600 H* (70-110) mg/dL Hemoglobin A1c (<=6.0) % Calcium (8.4-10.2) mg/dL ALT (4-49) U/L Troponin I 36.600 H* (0.000-0.034) ng/mL Total Protein (6.3-8.2) g/dL Albumin (3.5-5.0) g/dL 09/27/24 09/27/24 09/27/24 Range/Units 15:58 17:46 18:28 WBC (4.50-10.00) 10*3/uL RBC (4.40-5.60) 10*6/uL Hgb (13.0-17.0) g/dL Hct (39.6-50.0) % MPV (9.5-12.2) fL Immature Gran # (0.00-0.04) 10*3/uL Neutrophils # (1.80-7.70) 10*3/uL Monocytes # (0.20-1.00) 10*3/uL Eosinophils # (0.04-0.35) 10*3/uL APTT (22.0-30.0) sec VBG pH (7.31-7.41) VBG HCO3 (24-28) mmol/L Sodium (137-145) mmol/L Potassium (3.5-5.1) mmol/L Chloride (98-107) mmol/L BUN (9-20) mg/dL Creatinine (0.66-1.25) mg/dL Glucose (74-99) mg/dL POC Glucose (mg/dL) >600 H* >600 H* (70-110) mg/dL Hemoglobin A1c 13.3 H (<=6.0) % Calcium (8.4-10.2) mg/dL ALT (4-49) U/L Troponin I (0.000-0.034) ng/mL Total Protein (6.3-8.2) g/dL Albumin (3.5-5.0) g/dL 09/27/24 09/27/24 09/27/24 Range/Units 19:14 19:29 20:04 WBC (4.50-10.00) 10*3/uL RBC (4.40-5.60) 10*6/uL Hgb (13.0-17.0) g/dL Hct (39.6-50.0) % MPV (9.5-12.2) fL Immature Gran # (0.00-0.04) 10*3/uL Neutrophils # (1.80-7.70) 10*3/uL Monocytes # (0.20-1.00) 10*3/uL Eosinophils # (0.04-0.35) 10*3/uL APTT 74.6 H (22.0-30.0) sec VBG pH (7.31-7.41) VBG HCO3 (24-28) mmol/L Sodium (137-145) mmol/L Potassium (3.5-5.1) mmol/L Chloride (98-107) mmol/L BUN (9-20) mg/dL Creatinine (0.66-1.25) mg/dL Glucose (74-99) mg/dL POC Glucose (mg/dL) 585 H* 546 H* (70-110) mg/dL Hemoglobin A1c (<=6.0) % Calcium (8.4-10.2) mg/dL ALT (4-49) U/L Troponin I (0.000-0.034) ng/mL Total Protein (6.3-8.2) g/dL Albumin (3.5-5.0) g/dL 09/27/24 09/27/24 09/27/24 Range/Units 21:16 22:07 23:08 WBC (4.50-10.00) 10*3/uL RBC (4.40-5.60) 10*6/uL Hgb (13.0-17.0) g/dL Hct (39.6-50.0) % MPV (9.5-12.2) fL Immature Gran # (0.00-0.04) 10*3/uL Neutrophils # (1.80-7.70) 10*3/uL Monocytes # (0.20-1.00) 10*3/uL Eosinophils # (0.04-0.35) 10*3/uL APTT (22.0-30.0) sec VBG pH (7.31-7.41) VBG HCO3 (24-28) mmol/L Sodium (137-145) mmol/L Potassium (3.5-5.1) mmol/L Chloride (98-107) mmol/L BUN (9-20) mg/dL Creatinine (0.66-1.25) mg/dL Glucose (74-99) mg/dL POC Glucose (mg/dL) 495 H 436 H 357 H (70-110) mg/dL Hemoglobin A1c (<=6.0) % Calcium (8.4-10.2) mg/dL ALT (4-49) U/L Troponin I (0.000-0.034) ng/mL Total Protein (6.3-8.2) g/dL Albumin (3.5-5.0) g/dL 09/28/24 09/28/24 09/28/24 Range/Units 00:06 00:08 01:16 WBC (4.50-10.00) 10*3/uL RBC (4.40-5.60) 10*6/uL Hgb (13.0-17.0) g/dL Hct (39.6-50.0) % MPV (9.5-12.2) fL Immature Gran # (0.00-0.04) 10*3/uL Neutrophils # (1.80-7.70) 10*3/uL Monocytes # (0.20-1.00) 10*3/uL Eosinophils # (0.04-0.35) 10*3/uL APTT (22.0-30.0) sec VBG pH (7.31-7.41) VBG HCO3 (24-28) mmol/L Sodium 158 H (137-145) mmol/L Potassium (3.5-5.1) mmol/L Chloride 121 H (98-107) mmol/L BUN 59 H (9-20) mg/dL Creatinine (0.66-1.25) mg/dL Glucose 316 H (74-99) mg/dL POC Glucose (mg/dL) 309 H 172 H (70-110) mg/dL Hemoglobin A1c (<=6.0) % Calcium (8.4-10.2) mg/dL ALT (4-49) U/L Troponin I (0.000-0.034) ng/mL Total Protein (6.3-8.2) g/dL Albumin (3.5-5.0) g/dL 09/28/24 09/28/24 09/28/24 Range/Units 02:07 03:01 03:54 WBC (4.50-10.00) 10*3/uL RBC (4.40-5.60) 10*6/uL Hgb (13.0-17.0) g/dL Hct (39.6-50.0) % MPV (9.5-12.2) fL Immature Gran # (0.00-0.04) 10*3/uL Neutrophils # (1.80-7.70) 10*3/uL Monocytes # (0.20-1.00) 10*3/uL Eosinophils # (0.04-0.35) 10*3/uL APTT (22.0-30.0) sec VBG pH (7.31-7.41) VBG HCO3 (24-28) mmol/L Sodium 160 H (137-145) mmol/L Potassium (3.5-5.1) mmol/L Chloride 126 H (98-107) mmol/L BUN 56 H (9-20) mg/dL Creatinine (0.66-1.25) mg/dL Glucose 119 H (74-99) mg/dL POC Glucose (mg/dL) 126 H 124 H (70-110) mg/dL Hemoglobin A1c (<=6.0) % Calcium 8.2 L (8.4-10.2) mg/dL ALT 94 H (4-49) U/L Troponin I (0.000-0.034) ng/mL Total Protein 5.9 L (6.3-8.2) g/dL Albumin 3.3 L (3.5-5.0) g/dL 09/28/24 09/28/24 09/28/24 Range/Units 03:54 04:13 05:21 WBC 11.96 H (4.50-10.00) 10*3/uL RBC (4.40-5.60) 10*6/uL Hgb (13.0-17.0) g/dL Hct (39.6-50.0) % MPV (9.5-12.2) fL Immature Gran # (0.00-0.04) 10*3/uL Neutrophils # 9.45 H (1.80-7.70) 10*3/uL Monocytes # 1.11 H (0.20-1.00) 10*3/uL Eosinophils # 0.02 L (0.04-0.35) 10*3/uL APTT (22.0-30.0) sec VBG pH (7.31-7.41) VBG HCO3 (24-28) mmol/L Sodium (137-145) mmol/L Potassium (3.5-5.1) mmol/L Chloride (98-107) mmol/L BUN (9-20) mg/dL Creatinine (0.66-1.25) mg/dL Glucose (74-99) mg/dL POC Glucose (mg/dL) 135 H 186 H (70-110) mg/dL Hemoglobin A1c (<=6.0) % Calcium (8.4-10.2) mg/dL ALT (4-49) U/L Troponin I (0.000-0.034) ng/mL Total Protein (6.3-8.2) g/dL Albumin (3.5-5.0) g/dL 09/28/24 Range/Units 06:31 WBC (4.50-10.00) 10*3/uL RBC (4.40-5.60) 10*6/uL Hgb (13.0-17.0) g/dL Hct (39.6-50.0) % MPV (9.5-12.2) fL Immature Gran # (0.00-0.04) 10*3/uL Neutrophils # (1.80-7.70) 10*3/uL Monocytes # (0.20-1.00) 10*3/uL Eosinophils # (0.04-0.35) 10*3/uL APTT (22.0-30.0) sec VBG pH (7.31-7.41) VBG HCO3 (24-28) mmol/L Sodium (137-145) mmol/L Potassium (3.5-5.1) mmol/L Chloride (98-107) mmol/L BUN (9-20) mg/dL Creatinine (0.66-1.25) mg/dL Glucose (74-99) mg/dL POC Glucose (mg/dL) 223 H (70-110) mg/dL Hemoglobin A1c (<=6.0) % Calcium (8.4-10.2) mg/dL ALT (4-49) U/L Troponin I (0.000-0.034) ng/mL Total Protein (6.3-8.2) g/dL Albumin (3.5-5.0) g/dL
[2024-09-28 17:17] LABS: INR 1.3 (<1.2); Partial Thromboplastin Time 52.5 sec (22.0-30.0); Prothrombin Time 13.4 sec (10.0-12.5)
[2024-09-28 17:29] LABS: African American GFR (CKD) 37 (>60 ml/min/1.73 sqM); Anion Gap 14 mmol/L; Blood Urea Nitrogen 68 mg/dL (9-20); Calcium 7.7 mg/dL (8.4-10.2); Carbon Dioxide 18 mmol/L (22-30); Chloride 121 mmol/L (98-107); Glucose 351 mg/dL (74-99); Non-African American GFR(CKD) 32 (>60 ml/min/1.73 sqM); Potassium 4.2 mmol/L (3.5-5.1); Sodium 153 mmol/L (137-145)
[2024-09-28 17:35] LABS: Glucose,Whole Blood 299 mg/dL (70-110)
[2024-09-28] MEDS: HEPARIN SOD,PORK IN 0.45% NACL 25,000 UNIT in 0.45% NACL 1 250ML.BAG IV SCH (17:59)
[2024-09-28 18:14] LABS: LDH 2614 U/L (120-246)
[2024-09-28 18:24] LABS: Glucose,Whole Blood 290 mg/dL (70-110)
[2024-09-28 18:39] LABS: T4, Free (Free Thyroxine) 1.75 ng/dL (0.78-2.19)
[2024-09-28 20:02] LABS: Glucose,Whole Blood 250 mg/dL (70-110)
[2024-09-28 20:31] LABS: Partial Thromboplastin Time 41.8 sec (22.0-30.0)
[2024-09-28 21:03] LABS: Glucose,Whole Blood 188 mg/dL (70-110)
[2024-09-28 21:10] LABS: Basophils # (A) 0.01 10*3/uL (0.00-0.10); Basophils % (A) 0.1 %; Eosinophils # (A) 0.02 10*3/uL (0.04-0.35); Eosinophils % (A) 0.2 %; HCT 42.2 % (39.6-50.0); HGB 14.1 g/dL (13.0-17.0); Lymphocytes # (A) 1.64 10*3/uL (0.90-5.00); Lymphocytes % (A) 12.5 %; MCH 30.3 pg (27.0-32.0); MCHC 33.4 g/dL (32.0-37.0); MCV 90.8 fL (80.0-97.0); Mean Platelet Volume 11.7 fL (9.5-12.2); Monocytes # (A) 0.62 10*3/uL (0.20-1.00); Monocytes % (A) 4.7 %; Neutrophils # (A) 10.78 10*3/uL (1.80-7.70); Neutrophils % (A) 82.1 %; Platelet Count 148 10*3/uL (140-440); RBC 4.65 10*6/uL (4.40-5.60); RDW 13.6 % (11.5-14.5); WBC 13.12 10*3/uL (4.50-10.00)
[2024-09-28] MEDS: SODIUM CHLORIDE 0.45% 1,000 ML IV SCH (21:10)
[2024-09-28] MEDS: CHLORHEXIDINE GLUCONATE 15 ML CUP MUCOUS MEM SCH (21:17)
[2024-09-28] MEDS: ATORVASTATIN 80 MG TAB PO SCH (21:17)
[2024-09-28 22:08] LABS: Glucose,Whole Blood 108 mg/dL (70-110)
[2024-09-28 22:56] LABS: Glucose,Whole Blood 80 mg/dL (70-110)
[2024-09-28] MEDS: DEXTROSE 50% SYRINGE 50 ML IVP PRN (22:58)
[2024-09-28 23:48] LABS: Glucose,Whole Blood 124 mg/dL (70-110)
[2024-09-29 01:03] LABS: Glucose,Whole Blood 138 mg/dL (70-110)
[2024-09-29 02:03] LABS: Glucose,Whole Blood 152 mg/dL (70-110)
[2024-09-29 03:03] LABS: Glucose,Whole Blood 182 mg/dL (70-110)
[2024-09-29 04:10] LABS: Glucose,Whole Blood 187 mg/dL (70-110)
[2024-09-29 04:43] LABS: Basophils # (A) 0.02 10*3/uL (0.00-0.10); Basophils % (A) 0.2 %; Eosinophils # (A) 0.01 10*3/uL (0.04-0.35); Eosinophils % (A) 0.1 %; HCT 45.3 % (39.6-50.0); Lymphocytes # (A) 1.12 10*3/uL (0.90-5.00); Lymphocytes % (A) 9.5 %; MCHC 33.1 g/dL (32.0-37.0); MCV 90.6 fL (80.0-97.0); Mean Platelet Volume 12.1 fL (9.5-12.2); Monocytes # (A) 0.46 10*3/uL (0.20-1.00); Monocytes % (A) 3.9 %; Neutrophils # (A) 10.16 10*3/uL (1.80-7.70); Neutrophils % (A) 85.7 %; Platelet Count 145 10*3/uL (140-440); RDW 13.8 % (11.5-14.5); WBC 11.84 10*3/uL (4.50-10.00)
[2024-09-29 04:56] LABS: Partial Thromboplastin Time 46.9 sec (22.0-30.0)
[2024-09-29 05:02] LABS: Glucose,Whole Blood 169 mg/dL (70-110)
[2024-09-29 05:02] LABS: African American GFR (CKD) 28 (>60 ml/min/1.73 sqM); Carbon Dioxide 14 mmol/L (22-30); Non-African American GFR(CKD) 25 (>60 ml/min/1.73 sqM); Total Bilirubin 2.8 mg/dL (0.2-1.3); Total Protein 5.4 g/dL (6.3-8.2)
[2024-09-29 05:17] LABS: ABG Base Excess -8.1 mmol/L; ABG HCO3 15 mmol/L (21-25); ABG PCO2 25 mmHg (35-45); ABG PH 7.39 (7.35-7.45); ABG PO2 183 mmHg (83-108); ABG TCO2 16 mmol/L (19-24)
[2024-09-29 05:20] LABS: Allen Test Performed? no
[2024-09-29 05:37] LABS: ALT 582 U/L (4-49); Albumin 2.9 g/dL (3.5-5.0); Alkaline Phosphatase 83 U/L (38-126); Anion Gap 11 mmol/L; Blood Urea Nitrogen 72 mg/dL (9-20); Calcium 7.3 mg/dL (8.4-10.2); Chloride 122 mmol/L (98-107); Glucose 194 mg/dL (74-99); Potassium 5.5 mmol/L (3.5-5.1); Sodium 147 mmol/L (137-145)
[2024-09-29 05:58] LABS: Glucose,Whole Blood 147 mg/dL (70-110)
[2024-09-29] MEDS: SODIUM CHLORIDE 0.9% 250 ML IV SCH (05:59)
[2024-09-29 06:06] LABS: AST 2419 U/L (17-59); LDH 4724 U/L (120-246)
[2024-09-29 06:55] LABS: Glucose,Whole Blood 127 mg/dL (70-110)
[2024-09-29] MEDS ORDERED: INSULIN GLARGINE (LANTUS) 100 UNIT/ML SYR SQ SCH (07:00)
[2024-09-29 08:13] VITALS: PULSE 0; RESP 20; TEMP 0
--- NOTE | 2024-09-29 08:26 | XR ---
EXAMINATION TYPE: XR chest 1V portable DATE OF EXAM: 09/29/2024 6:04 AM COMPARISON: Chest radiograph from one day prior. CLINICAL INDICATION: Male, 69 years old with history of LVAD placement. Perform with HOB at 0 degrees .; [facility] TECHNIQUE: XR chest 1V portable Frontal view of the chest. FINDINGS: Lungs/Pleura: There is no evidence of pleural effusion, focal consolidation, or pneumothorax. Pulmonary vascularity: Unremarkable. Heart/mediastinum: Cardiomediastinal silhouette is unremarkable. Musculoskeletal: No acute osseous pathology. Other findings: None Lines/Tubes: Endotracheal tube with distal tip 2.5 cm above the rayshawn. Nasogastric tube with its distal tip and side-port projecting under the diaphragm. Left central venous catheter with distal tip at the cavoatrial junction. Left ventricular assist device crossing through the aortic arch and in the expected location of the a ortic valve. IMPRESSION: 1. Left ventricular assist device crossing through the aortic arch and in the expected location of t he aortic valve. 2. Endotracheal tube now in appropriate position. 3. No acute cardiopulmonary disease/process. [facility], , 09/29/2024 8:24 AM
--- NOTE | 2024-09-29 13:21 | CA ---
Transthoracic Echo Report Name: Red Vizcaino Age: 69 Gender: M : 1955 Exam Date: 09/28/2024 16:26 Exam Location: [facility] Ht (in): 73 Wt (lb): 171 Ordering Physician: Eusebio Iverson DO ([email or web address]) Attending/Referring Phys: Mat Worker Jocelyn Malone RDCS Procedure CPT: Indications: Placement of Left Ventricular Assist Device Cardiac Hx: Technical Quality: Fair Contrast 1: Total Dose (mL): Contrast 2: Total Dose (mL): MEASUREMENTS (Male / Female) Normal Values FINDINGS Left Ventricle Impella measured 4.5cm. Right Ventricle Right Atrium Left Atrium Mitral Valve Aortic Valve Tricuspid Valve Pulmonic Valve Pericardium Aorta CONCLUSIONS Limited 2D echo Left ventricular ejection fraction 10 to 20% Impella measured 4.5 cm from the aortic valve No pericardial effusion Previewed by: Dr. Eusebio Iverson DO (Electronically Signed) Final Date: 29 September 2024 13:20
--- NOTE | 2024-09-29 18:34 | P.DS ---
Providers Date of admission: 09/27/24 16:12 Expected date of discharge: 09/29/24 () Attending physician: Vaishali Washington MD Consults: 09/27/24 16:12 Consult Physician Stat Consulting Provider: [facility] Consult Reason/Comments: STEMI, spoke with Dr. Hale Do you want consulting provider notified?: Already Contacted 09/27/24 23:18 Consult Physician Routine Consulting Provider: [facility] Consult Reason/Comments: Post Interventional Patient Do you want consulting provider notified?: Already Contacted 09/28/24 07:16 Consult Physician Routine Consulting Provider: Asa Merchant Consult Reason/Comments: hypernatremia Do you want consulting provider notified?: Yes 09/28/24 07:55 Consult Physician Routine Consulting Provider: Diego Michael Consult Reason/Comments: altered mental status Do you want consulting provider notified?: Yes 09/28/24 11:29 Consult Physician Routine Consulting Provider: Romero Michael Consult Reason/Comments: ICU management Do you want consulting provider notified?: Yes Primary care physician: Fantasma Rickso Hospital Course: Discharge diagnoses; #ST elevation PR #Cardiogenic shock, status post TVP and Impella CP placement #Metabolic encephalopathy likely due to above #Diabetic ketoacidosis #Hypovolemic hypernatremia #Hyperkalemia #MIGUEL #Transaminitis Hospital course; History of present illness; 69-year-old male with uncontrolled diabetes mellitus coronary artery disease hypertension. Patient seems to be tired at this time unable to provide any meaningful history he confirm with his daughter is providing at bedside. She has not spoken to him in couple days he was not answering his phone she goes to his house to check on him and she found him lethargic and unable to take care of himself for which he brought him to the hospital for evaluation upon arrival initial blood work showed diabetic ketoacidosis however EKG showed ST elevation PR for which she was rushed to the [facility] for evaluation patient did not really specifically reporting chest pain he was hurting all over. At the [facility] left heart cath was performed 95% occlusion of the LAD was stented with successful PCI. Patient also found to have other moderate vessel disease and 100% occlusion of RCA with collaterals. Echocardiogram was found with EF of 15 to 20% with severe left ventricular wall thickness. During hospital stay patient has no complaints of pain but is seem confused. He continued to have bradycardia and was hypotensive as result of cardiogenic shock. He continued on Levophed and dopamine which did not improve his symptoms and decision was made to place TVP and Impella. Patient was mechanically intubated and sedated. Procedure went well without any known complications. He was being seen by pulmonology, cardiology and nephrology. Neurology was consulted due to altered mental status and confusion. Patient was made no code, and after further deterioration he subsequently . Physical exam: Patient Dictation was produced using [employer] dictation software. please excuse any grammatical, word or spelling errors. . Plan - Discharge Summary Discharge Rx Participant: No New Discharge Prescriptions: Discontinued Losartan [Cozaar] 50 mg PO DAILY Follow up Appointment(s)/Referral(s): Fantasma Payne MD [Primary Care Provider] - 1-2 days Discharge Disposition: - Preliminary Cause of Preliminary Cause of : Cardiogenic shock to to STEMI
== END 2024-09-29 14:30 | disposition expired | DRG 215 ==
LOC: EC 15:49 → 2SICU 16:12
PROVIDERS: ADMIT Family Medicine; ATTEND Family Medicine
PROC: 3E043XZ Introduction of Vasopressor into Central Vein, Percutaneous Approach (ICD-10-PCS; 2024-09-27)
PROC: B2111ZZ Fluoroscopy of Multiple Coronary Arteries using Low Osmolar Contrast (ICD-10-PCS; 2024-09-27)
PROC: B240ZZ3 Ultrasonography of Single Coronary Artery, Intravascular (ICD-10-PCS; 2024-09-27)
PROC: 02HV33Z Insertion of Infusion Device into Superior Vena Cava, Percutaneous Approach (ICD-10-PCS; 2024-09-27)
PROC: 02H633Z Insertion of Infusion Device into Right Atrium, Percutaneous Approach (ICD-10-PCS; 2024-09-27)
PROC: 4A023N7 Measurement of Cardiac Sampling and Pressure, Left Heart, Percutaneous Approach (ICD-10-PCS; 2024-09-27 16:21)
PROC: 027035Z Dilation of Coronary Artery, One Artery with Two Drug-eluting Intraluminal Devices, Percutaneous Approach (ICD-10-PCS; 2024-09-27 16:21)
PROC: 02HA3RZ Insertion of Short-term External Heart Assist System into Heart, Percutaneous Approach (ICD-10-PCS; 2024-09-28)
PROC: 5A1223Z Performance of Cardiac Pacing, Continuous (ICD-10-PCS; 2024-09-28)
PROC: 0BH17EZ Insertion of Endotracheal Airway into Trachea, Via Natural or Artificial Opening (ICD-10-PCS; 2024-09-28)
PROC: 4A133B1 Monitoring of Arterial Pressure, Peripheral, Percutaneous Approach (ICD-10-PCS; 2024-09-28)
PROC: 4A133J1 Monitoring of Arterial Pulse, Peripheral, Percutaneous Approach (ICD-10-PCS; 2024-09-28)
PROC: 03HY32Z Insertion of Monitoring Device into Upper Artery, Percutaneous Approach (ICD-10-PCS; 2024-09-28)
PROC: 4A023N6 Measurement of Cardiac Sampling and Pressure, Right Heart, Percutaneous Approach (ICD-10-PCS; 2024-09-28)
PROC: 5A1935Z Respiratory Ventilation, Less than 24 Consecutive Hours (ICD-10-PCS; 2024-09-28)
PROC: 5A0221D Assistance with Cardiac Output using Impeller Pump, Continuous (ICD-10-PCS; principal; 2024-09-28 13:16)
DX: I21.19 ST elevation (STEMI) myocardial infarction involving other coronary artery of inferior wall (principal); E11.10 Type 2 diabetes mellitus with ketoacidosis without coma; G93.41 Metabolic encephalopathy; N17.0 Acute kidney failure with tubular necrosis; R57.0 Cardiogenic shock; I10 Essential (primary) hypertension; I42.9 Cardiomyopathy, unspecified; E87.0 Hyperosmolality and hypernatremia; N17.9 Acute kidney failure, unspecified; E87.1 Hypo-osmolality and hyponatremia; Z79.4 Long term (current) use of insulin; I25.10 Atherosclerotic heart disease of native coronary artery without angina pectoris; R00.1 Bradycardia, unspecified; Z66 Do not resuscitate; E86.1 Hypovolemia; E87.5 Hyperkalemia; R74.01 Elevation of levels of liver transaminase levels; E86.0 Dehydration; E78.5 Hyperlipidemia, unspecified; E87.8 Other disorders of electrolyte and fluid balance, not elsewhere classified; Z79.02 Long term (current) use of antithrombotics/antiplatelets; Z79.899 Other long term (current) drug therapy; Z82.49 Family history of ischemic heart disease and other diseases of the circulatory system
CPT/HCPCS: 33210; 33990; 36415; 71045; 80048; 80051; 80053; 82009; 82533; 82565; 82803; 82805; 82810; 82947; 83036; 83605; 83615; 83735; 84100; 84295; 84439; 84443; 84484; 84520; 85018; 85025; 85384; 85610; 85730; 92920; 92978; 93005; 93306; 93308; 93451; 93454; 94002; 94003; 96374; 99285